=== PATIENT | male | born 1960 | race Caucasian/White ===

== ENCOUNTER 2016-12-21 15:31 | Inpatient (IN) | payer MEDICARE, OTHER ==
[~2016-12-21] VITALS: Ht 162.6 cm; Wt 63.3 kg
[~2016-12-21 15:31] MED LIST: DSS100 PO; METF500T4 PO; MULT-1238 PO; OMEP20 PO
[2016-12-21 15:51] LABS: GLUCOSE,POINT OF CARE 52 MG/DL (70-110)
[2016-12-21 16:16] LABS: ANION GAP 28 mmol/L (8-16); CALCIUM, TOTAL 7.2 mg/dL (8.8-10.5); CARBON DIOXIDE 14 mmol/L (22-29); CHLORIDE 95 mmol/L (98-107); CREATININE 2.43 mg/dL (0.60-1.30); GLOMERULAR FILTR. RATE CALC 28 mL/min (>60); HEMATOCRIT 35.8 % (41-53); MEAN CORPUSCULAR HEMOGLOBIN 31.6 pg (26.0-34.0); MEAN CORPUSCULAR HGB CONC 33.6 G/dL (31.0-37.0); MEAN CORPUSCULAR VOLUME 94 fL (80-100); POTASSIUM 3.6 mmol/L (3.5-5.1); RED BLOOD CELL COUNT(AUTO) 3.81 MIL/uL (4.50-5.90); RED CELL DISTRIBUTION WIDTH 15.3 % (11.5-14.5); SODIUM SERUM 137 mmol/L (136-145); UREA NITROGEN, BLOOD 21 mg/dL (7-18); WHITE BLOOD COUNT (AUTO) 15.3 K/uL (4.5-11.0)
[2016-12-21 16:20] LABS: ALANINE AMINOTRANSFERASE 188 U/L (12-78); ALBUMIN 2.6 g/dL (3.4-5.0); ASPARTATE AMINOTRANSFERASE 399 U/L (15-37); BILIRUBIN,TOTAL 1.5 mg/dL (0.1-1.0); TOTAL PROTEIN, SERUM 6.8 g/dL (6.4-8.2)
[2016-12-21] MEDS ORDERED: NAPROXEN 250 MG TABLET PO ONE (16:45)
[2016-12-21 17:24] LABS: PLATELET COUNT (AUTO) 41 K/uL (150-450)
[2016-12-21 18:12] LABS: GLUCOSE,POINT OF CARE 99 MG/DL (70-110)
[2016-12-21] MEDS ORDERED: SODIUM CHLORIDE 0.9% 2,000 ML IV ONE (18:13)
[2016-12-21] MEDS ORDERED: DEXTROSE 50%-WATER 25 GM/50 ML SYRINGE IVP ONE (18:30)
[2016-12-21] MEDS ORDERED: SODIUM CHLORIDE 0.9% 1,000 ML IV ONE ×2 (18:30)
[2016-12-21 18:37] LABS: BAND NEUTROPHILS % (MANUAL) 43 % (1-5); LYMPHOCYTES % (MANUAL) 4 % (22-44); METAMYELOCYTES % 8 % (0-0); TOTAL CELLS COUNTED 100
[2016-12-21 18:38] LABS: WBC MORPHOLOGY TOXIC VACUOLATION
[2016-12-21 19:00] LABS: ABG BASE EXCESS -11.5 mmol/L (-2.0-3.0); ABG HCO3 16.6 mmol/L (22.0-26.0); ABG PCO2 25 mmHg (35-45); ABG PH 7.367 (7.35-7.450); TEMPERATURE, FAHRENHEIT, BG 98.6 FAHREN (96.0-98.6)
[2016-12-21 19:01] LABS: ALLEN TEST, BLOOD GAS Positive
[2016-12-21 19:21] LABS: APPEARANCE,URINE CLOUDY (CLEAR)
[2016-12-21 19:22] LABS: PROTEIN,URINE SEE CONFIRM (NEGATIVE)
[2016-12-21 19:23] LABS: GLUCOSE, URINE (UA) NEGATIVE (NEGATIVE)
[2016-12-21 19:25] LABS: OCCULT BLOOD,URINE LARGE (NEGATIVE)
[2016-12-21 19:26] LABS: ADD UA MICROSCOPIC YES; KETONES,URINE TRACE mg/dL (NEGATIVE); LEUKOCYTE ESTERASE ,URINE TRACE (NEGATIVE)
[2016-12-21 19:29] LABS: INR 1.2 (0.9-1.1); PROTHROMBIN TIME 12.7 SEC (9.4-11.6)
[2016-12-21 19:29] LABS: SULFOSALICYLIC ACID,URINE 1+ (Negative)
[2016-12-21 19:30] LABS: SQUAMOUS EPITHELIAL CELL,UR Few /LPF (None Seen)
[2016-12-21] MEDS ORDERED: ASPIRIN 325 MG TABLET PO ONE (19:30)
[2016-12-21 19:33] LABS: LACTIC ACID 9.4 mmol/L (0.4-2.0)
[2016-12-21 19:40] LABS: CREATINE KINASE, TOTAL 9653 U/L (39-308)
[2016-12-21] MEDS ORDERED: PIPERACILLIN/TAZO 3.375 GM/D5W 50 ML IV ONE (19:45)
[2016-12-21] MEDS ORDERED: CALCIUM GLUCONATE 2,000 MG in DEXTROSE 5%-WATER 50 ML IV ONE (19:45)
[2016-12-21] MEDS ORDERED: 0.9% SODIUM CHLORIDE 10 ML SYRINGE IVP PRN (20:00)
[2016-12-21] MEDS ORDERED: ONDANSETRON HCL 4 MG/2 ML VIAL IVP PRN (20:00)
[2016-12-21] MEDS ORDERED: ACETAMINOPHEN 325 MG TABLET PO PRN (20:00)
[2016-12-21 20:02] LABS: SALICYLATE 3.3 mg/dL (2.8-20.0)
[2016-12-21 20:35] LABS: ACETAMINOPHEN < 2 mcg/mL (10-30)
[2016-12-21 20:42] LABS: REFLEX LACTIC ACID? YES YES
[2016-12-21 21:46] VITALS: BP 107/79
[2016-12-21] MEDS ORDERED: INFLUENZA VIRUS VACCINE QVS 2016-17 (3YR+)/PF 60 MCG/0.5 ML SYRINGE IM ONE (23:45)
[2016-12-21] MEDS ORDERED: -PHARMACY VACCINE NOTE- MISC ONE ×2 (23:45)
[2016-12-21 23:51] VITALS: BP 100/63
[2016-12-22] VITALS (7 sets, daily range): BP systolic 90–111; BP diastolic 58–69
[2016-12-22 00:11] LABS: ALBUMIN 2.3 g/dL (3.4-5.0); BILIRUBIN,TOTAL 1.4 mg/dL (0.1-1.0); CALCIUM, TOTAL 6.5 mg/dL (8.8-10.5); CREATININE 2.12 mg/dL (0.60-1.30); POTASSIUM 3.7 mmol/L (3.5-5.1); TOTAL PROTEIN, SERUM 6.1 g/dL (6.4-8.2)
[2016-12-22] MEDS ORDERED: SODIUM CHLORIDE 0.9% 1,000 ML IV SCH ×2 (00:45→10:45)
[2016-12-22 02:59] LABS: CREATINE KINASE MB 46.2 ng/mL (0-5)
[2016-12-22] MEDS ORDERED: DEXTROSE 50%-WATER 25 GM/50 ML SYRINGE IVP PRN (04:45)
[2016-12-22] MEDS ORDERED: ChlordiazePOXIDE HCL 25 MG CAPSULE PO PRN (04:45)
[2016-12-22] MEDS ORDERED: ACETAMINOPHEN 325 MG TABLET PO PRN (05:00)
[2016-12-22] MEDS ORDERED: MAGNESIUM HYDROXIDE SUSPENSION 30 ML UDCUP PO PRN (05:00)
[2016-12-22] MEDS ORDERED: 0.9% SODIUM CHLORIDE 10 ML SYRINGE IVP PRN (05:00)
[2016-12-22] MEDS ORDERED: ONDANSETRON HCL 4 MG/2 ML VIAL IVP PRN (05:00)
[2016-12-22] MEDS ORDERED: OxyCODONE HCL/ACETAMINOPHEN 5-325 MG TABLET PO PRN (05:00)
[2016-12-22] MEDS ORDERED: NICOTINE 21 MG/24 HOUR PATCH TD ONE (06:30)
[2016-12-22] MEDS: CefTRIAXone 1 GM/DEXTROSE 50 ML IV SCH (06:36)
[2016-12-22] MEDS: PANTOPRAZOLE SODIUM 40 MG/VIAL IVP SCH (08:59)
[2016-12-22] MEDS: MULTIVITAMINS, THERAPEUTIC TABLET PO SCH (08:59)
[2016-12-22] MEDS: THIAMINE HCL 100 MG TABLET PO SCH (08:59)
[2016-12-22] MEDS: METOPROLOL SUCCINATE 25 MG ER TABLET PO SCH (08:59)
[2016-12-22] MEDS: FOLIC ACID 1 MG TABLET PO SCH (08:59)
[2016-12-22] MEDS: DOCUSATE SODIUM 100 MG CAPSULE PO SCH ×2 (09:00→20:39)
[2016-12-22] MEDS: INSULIN ASPART 100 UNITS/ML SQ PRN ×2 (11:45→18:18)
[2016-12-22] MEDS: SODIUM BICARBONATE 150 MEQ in DEXTROSE 5%-WATER 1,000 ML IV SCH (18:11)
[2016-12-22] MEDS ORDERED: MAGNESIUM SULFATE 2 GM in DEXTROSE 5%-WATER 50 ML IV ONE (18:30)
[2016-12-22 22:51] LABS: GLUCOSE,POINT OF CARE 147 MG/DL (70-110)
[2016-12-22 22:51] LABS: GLUCOSE,POINT OF CARE 122 MG/DL (70-110)
[2016-12-23 04:17] VITALS: BP 93/56
[2016-12-23 04:47] VITALS: BP 93/56
[2016-12-23] MEDS: CefTRIAXone 1 GM/DEXTROSE 50 ML IV SCH (05:59)
[2016-12-23] MEDS: SODIUM BICARBONATE 150 MEQ in DEXTROSE 5%-WATER 1,000 ML IV SCH (05:59)
[2016-12-23] MEDS ORDERED: ChlordiazePOXIDE HCL 25 MG CAPSULE PO PRN (07:00)
[2016-12-23 07:18] VITALS: BP 113/66
[2016-12-23 07:36] LABS: HEMATOCRIT 29.4 % (41-53); HEMOGLOBIN 10.2 g/dL (13.5-17.5); MEAN CORPUSCULAR HEMOGLOBIN 32.3 pg (26.0-34.0); MEAN CORPUSCULAR HGB CONC 34.7 G/dL (31.0-37.0); MEAN CORPUSCULAR VOLUME 93 fL (80-100); RED BLOOD CELL COUNT(AUTO) 3.16 MIL/uL (4.50-5.90); RED CELL DISTRIBUTION WIDTH 15.3 % (11.5-14.5); WHITE BLOOD COUNT (AUTO) 10.2 K/uL (4.5-11.0)
[2016-12-23 08:24] LABS: PLATELET COUNT (AUTO) 14 K/uL (150-450)
[2016-12-23] MEDS: PANTOPRAZOLE SODIUM 40 MG/VIAL IVP SCH (08:26)
[2016-12-23] MEDS: DOCUSATE SODIUM 100 MG CAPSULE PO SCH ×2 (08:26→20:24)
[2016-12-23] MEDS: MULTIVITAMINS, THERAPEUTIC TABLET PO SCH (08:26)
[2016-12-23] MEDS: ChlordiazePOXIDE HCL 25 MG CAPSULE PO SCH ×4 (08:26→20:27)
[2016-12-23] MEDS: THIAMINE HCL 100 MG TABLET PO SCH (08:26)
[2016-12-23] MEDS: METOPROLOL SUCCINATE 25 MG ER TABLET PO SCH (08:26)
[2016-12-23] MEDS: FOLIC ACID 1 MG TABLET PO SCH (08:26)
[2016-12-23 08:27] LABS: BAND NEUTROPHILS % (MANUAL) 16 % (1-5); EOSINOPHILS % (MANUAL) 1 % (1-6); LYMPHOCYTES % (MANUAL) 15 % (22-44); TOTAL CELLS COUNTED 100
[2016-12-23 08:29] LABS: BILIRUBIN,TOTAL 1.6 mg/dL (0.1-1.0); CALCIUM, TOTAL 6.9 mg/dL (8.8-10.5); CREATININE 1.39 mg/dL (0.60-1.30); MAGNESIUM 1.8 mg/dL (1.80-2.40); TOTAL PROTEIN, SERUM 5.7 g/dL (6.4-8.2)
[2016-12-23 08:33] LABS: POTASSIUM 2.7 mmol/L (3.5-5.1)
[2016-12-23] MEDS ORDERED: POTASSIUM CHLORIDE 20 MEQ ER TABLET PO ONE (08:45)
[2016-12-23 08:47] LABS: APPEARANCE,URINE CLOUDY (CLEAR); GLUCOSE, URINE (UA) NEGATIVE (NEGATIVE); KETONES,URINE NEGATIVE (NEGATIVE); LEUKOCYTE ESTERASE ,URINE LARGE (NEGATIVE); OCCULT BLOOD,URINE LARGE (NEGATIVE); PROTEIN,URINE TRACE (NEGATIVE)
[2016-12-23 08:49] LABS: ADD UA MICROSCOPIC YES
[2016-12-23 08:53] LABS: SQUAMOUS EPITHELIAL CELL,UR Few /LPF (None Seen)
[2016-12-23] MEDS ORDERED: POTASSIUM CHLORIDE IV ONE (09:00)
[2016-12-23] MEDS ORDERED: SODIUM BICARBONATE IV ONE (09:00)
[2016-12-23] MEDS ORDERED: SODIUM CHLORIDE 0.45% IV ONE (09:00)
[2016-12-23 11:02] VITALS: BP 101/59
[2016-12-23] MEDS: INSULIN ASPART 100 UNITS/ML SQ PRN ×3 (11:32→20:47)
[2016-12-23] MEDS ORDERED: POTASSIUM CHLORIDE 10% 40 MEQ/30 ML LIQUID UDCUP PO ONE (12:45)
[2016-12-23] MEDS: NICOTINE 21 MG/24 HOUR PATCH TD SCH (12:55)
[2016-12-23 14:24] LABS: FIBRINOGEN 375 mg/dL (200-400)
[2016-12-23 14:33] LABS: VITAMIN B12 LEVEL 927 pg/mL (211-911)
[2016-12-23] MEDS: DENTURE ADHESIVE 68 GM CREAM DT PRN (15:22)
[2016-12-23 15:43] VITALS: BP 127/72
[2016-12-23 20:10] VITALS: BP 102/70
[2016-12-23] MEDS: OxyCODONE HCL/ACETAMINOPHEN 5-325 MG TABLET PO PRN (20:27)
[2016-12-24] VITALS: BP 110/67
[2016-12-24 04:07] LABS: GLUCOSE,POINT OF CARE 135 MG/DL (70-110)
[2016-12-24] MEDS ORDERED: SODIUM CHLORIDE 0.9% 100 ML ONE (05:21)
[2016-12-24] MEDS: CefTRIAXone 1 GM/DEXTROSE 50 ML IV SCH (05:23)
[2016-12-24 05:24] VITALS: BP 123/82
[2016-12-24] MEDS: INSULIN ASPART 100 UNITS/ML SQ PRN ×2 (06:01→22:13)
[2016-12-24 07:21] VITALS: BP 111/80
[2016-12-24] MEDS: PANTOPRAZOLE SODIUM 40 MG/VIAL IVP SCH (08:09)
[2016-12-24] MEDS: DOCUSATE SODIUM 100 MG CAPSULE PO SCH ×2 (08:09→22:04)
[2016-12-24] MEDS: THIAMINE HCL 100 MG TABLET PO SCH (08:10)
[2016-12-24] MEDS: ChlordiazePOXIDE HCL 25 MG CAPSULE PO SCH ×4 (08:10→22:04)
[2016-12-24] MEDS: MULTIVITAMINS, THERAPEUTIC TABLET PO SCH (08:10)
[2016-12-24] MEDS: FOLIC ACID 1 MG TABLET PO SCH (08:10)
[2016-12-24] MEDS: BuPROPion HCL 100 MG SR TABLET PO SCH (08:10)
[2016-12-24] MEDS: NICOTINE 21 MG/24 HOUR PATCH TD SCH (08:11)
[2016-12-24 08:52] LABS: GLUCOSE,POINT OF CARE 91 MG/DL (70-110)
[2016-12-24 10:12] LABS: HEMATOCRIT 31.3 % (41-53); HEMOGLOBIN 10.8 g/dL (13.5-17.5); MEAN CORPUSCULAR HEMOGLOBIN 31.8 pg (26.0-34.0); MEAN CORPUSCULAR HGB CONC 34.4 G/dL (31.0-37.0); MEAN CORPUSCULAR VOLUME 92 fL (80-100); RED BLOOD CELL COUNT(AUTO) 3.39 MIL/uL (4.50-5.90); RED CELL DISTRIBUTION WIDTH 15.3 % (11.5-14.5); WHITE BLOOD COUNT (AUTO) 6.6 K/uL (4.5-11.0)
[2016-12-24 10:23] LABS: PLATELET COUNT (AUTO) 15 K/uL (150-450)
[2016-12-24 10:27] LABS: ANION GAP 7 mmol/L (8-16); CALCIUM, TOTAL 7.5 mg/dL (8.8-10.5); CARBON DIOXIDE 27 mmol/L (22-29); CHLORIDE 106 mmol/L (98-107); CREATINE KINASE MB 3.4 ng/mL (0-5); CREATININE 1.04 mg/dL (0.60-1.30); GLOMERULAR FILTR. RATE CALC > 60 mL/min (>60); POTASSIUM 3.5 mmol/L (3.5-5.1); SODIUM SERUM 140 mmol/L (136-145); UREA NITROGEN, BLOOD 34 mg/dL (7-18)
[2016-12-24 10:31] LABS: CREATINE KINASE, TOTAL 1278 U/L (39-308)
[2016-12-24 10:58] LABS: APPEARANCE,URINE CLEAR (CLEAR); GLUCOSE, URINE (UA) NEGATIVE (NEGATIVE); KETONES,URINE NEGATIVE (NEGATIVE); LEUKOCYTE ESTERASE ,URINE MODERATE (NEGATIVE); OCCULT BLOOD,URINE MODERATE (NEGATIVE); PROTEIN,URINE NEGATIVE (NEGATIVE)
[2016-12-24 11:00] LABS: BAND NEUTROPHILS % (MANUAL) 11 % (1-5); LYMPHOCYTES % (MANUAL) 14 % (22-44); TOTAL CELLS COUNTED 100
[2016-12-24] MEDS ORDERED: POTASSIUM CHLORIDE 10% 40 MEQ/30 ML LIQUID UDCUP PO ONE (11:00)
[2016-12-24 11:01] LABS: ADD UA MICROSCOPIC YES
[2016-12-24 11:02] LABS: RBC MORPHOLOGY COMMENT ABNORMAL R
[2016-12-24 11:04] LABS: SQUAMOUS EPITHELIAL CELL,UR Few /LPF (None Seen)
[2016-12-24 11:31] VITALS: BP 148/91
[2016-12-24] MEDS: SODIUM BICARBONATE 650 MG TABLET PO SCH ×2 (12:01→22:05)
[2016-12-24] MEDS: METOPROLOL SUCCINATE 25 MG ER TABLET PO SCH (12:01)
[2016-12-24 15:45] VITALS: BP 115/74
[2016-12-24] MEDS: CefoTEtan DISOD 1 GM/DEXTROSE 50 ML IV SCH (17:16)
[2016-12-24] MEDS: MAGNESIUM OXIDE 400 MG TABLET PO SCH ×2 (17:16→22:04)
[2016-12-24] MEDS ORDERED: SODIUM CHLORIDE 0.9% 250 ML IV ONE (18:09)
[2016-12-24 19:07] LABS: GLUCOSE,POINT OF CARE 118 MG/DL (70-110)
[2016-12-24 20:03] VITALS: BP 125/81
[2016-12-25 00:34] VITALS: BP 106/68
[2016-12-25] MEDS: CefoTEtan DISOD 1 GM/DEXTROSE 50 ML IV SCH ×3 (00:52→16:47)
[2016-12-25 04:06] LABS: HEPATITIS Bs ANTIGEN SCREEN P Negative (Negative); HEPATITIS C AB SCREEN >11.0 s/co ratio (0.0-0.9)
[2016-12-25 06:26] VITALS: BP 113/69
[2016-12-25] MEDS: INSULIN ASPART 100 UNITS/ML SQ PRN (06:48)
[2016-12-25] MEDS ORDERED: ChlordiazePOXIDE HCL 10 MG CAPSULE PO PRN (07:00)
[2016-12-25 07:56] LABS: BASOPHILS % (AUTO) 0.5 % (0.0-2.0); EOSINOPHILS % (AUTO) 2.8 % (1.0-6.0); HEMATOCRIT 31.4 % (41-53); HEMOGLOBIN 10.7 g/dL (13.5-17.5); LYMPHOCYTES # (AUTO) 1.1 K/uL (1.0-4.8); LYMPHOCYTES % (AUTO) 20.2 % (22.0-44.0); MEAN CORPUSCULAR HEMOGLOBIN 31.8 pg (26.0-34.0); MEAN CORPUSCULAR HGB CONC 34.1 G/dL (31.0-37.0); MEAN CORPUSCULAR VOLUME 93 fL (80-100); MONOCYTES # (AUTO) 0.3 K/uL (0.1-1.0); MONOCYTES % (AUTO) 6.3 % (2.0-9.0); NEUTROPHILS # (AUTO) 3.9 K/uL (1.8-7.7); NEUTROPHILS % (AUTO) 70.2 % (40.0-70.0); PLATELET COUNT (AUTO) 21 K/uL (150-450); RED BLOOD CELL COUNT(AUTO) 3.37 MIL/uL (4.50-5.90); RED CELL DISTRIBUTION WIDTH 15.2 % (11.5-14.5); WHITE BLOOD COUNT (AUTO) 5.6 K/uL (4.5-11.0)
[2016-12-25 08:00] VITALS: BP 106/57
[2016-12-25 08:26] LABS: ANION GAP 7 mmol/L (8-16); CALCIUM, TOTAL 7.8 mg/dL (8.8-10.5); CARBON DIOXIDE 26 mmol/L (22-29); CHLORIDE 107 mmol/L (98-107); CREATININE 1.05 mg/dL (0.60-1.30); GLOMERULAR FILTR. RATE CALC > 60 mL/min (>60); POTASSIUM 3.8 mmol/L (3.5-5.1); SODIUM SERUM 140 mmol/L (136-145); UREA NITROGEN, BLOOD 24 mg/dL (7-18)
[2016-12-25] MEDS: BuPROPion HCL 100 MG SR TABLET PO SCH (08:55)
[2016-12-25] MEDS: NICOTINE 21 MG/24 HOUR PATCH TD SCH (08:55)
[2016-12-25] MEDS: PANTOPRAZOLE SODIUM 40 MG/VIAL IVP SCH (08:55)
[2016-12-25] MEDS: FOLIC ACID 1 MG TABLET PO SCH (08:56)
[2016-12-25] MEDS: THIAMINE HCL 100 MG TABLET PO SCH (08:56)
[2016-12-25] MEDS: MULTIVITAMINS, THERAPEUTIC TABLET PO SCH (08:56)
[2016-12-25] MEDS: METOPROLOL SUCCINATE 25 MG ER TABLET PO SCH (08:56)
[2016-12-25] MEDS: SODIUM BICARBONATE 650 MG TABLET PO SCH ×2 (08:56→21:42)
[2016-12-25] MEDS: MAGNESIUM OXIDE 400 MG TABLET PO SCH ×3 (08:56→21:42)
[2016-12-25] MEDS: ChlordiazePOXIDE HCL 25 MG CAPSULE PO SCH (08:59)
[2016-12-25] MEDS: DOCUSATE SODIUM 100 MG CAPSULE PO SCH ×2 (09:00→21:00)
[2016-12-25] MEDS: ChlordiazePOXIDE HCL 10 MG CAPSULE PO SCH ×4 (09:10→21:00)
[2016-12-25] MEDS ORDERED: MAGNESIUM SULFATE 1 GM in DEXTROSE 5%-WATER 50 ML IV ONE (10:30)
[2016-12-25 11:16] LABS: RBC MORPHOLOGY COMMENT NORMAL RBC MORPH
[2016-12-25 12:00] VITALS: BP 111/62
[2016-12-25 16:23] VITALS: BP 131/83
[2016-12-25] MEDS ORDERED: SODIUM CHLORIDE 0.9% 250 ML IV ONE (16:40)
[2016-12-25] MEDS ORDERED: MAGNESIUM SULFATE 4 GM/WATER 100 ML IV PRN (17:45)
[2016-12-25] MEDS ORDERED: MAGNESIUM OXIDE 400 MG TABLET PO PRN (17:45)
[2016-12-25] MEDS ORDERED: MAGNESIUM SULFATE 2 GM in DEXTROSE 5%-WATER 50 ML IV PRN (17:45)
[2016-12-25 20:08] VITALS: BP 125/80
[2016-12-25 23:42] LABS: GLUCOSE,POINT OF CARE 132 MG/DL (70-110)
[2016-12-25 23:42] LABS: GLUCOSE,POINT OF CARE 136 MG/DL (70-110)
[2016-12-26] VITALS (7 sets, daily range): BP systolic 120–140; BP diastolic 73–84
[2016-12-26] MEDS ORDERED: SODIUM CHLORIDE 0.9% 100 ML ONE (04:34)
[2016-12-26] MEDS: CefoTEtan DISOD 1 GM/DEXTROSE 50 ML IV SCH ×2 (04:53→16:14)
[2016-12-26] MEDS: INSULIN ASPART 100 UNITS/ML SQ PRN (06:45)
[2016-12-26] MEDS ORDERED: ChlordiazePOXIDE HCL 10 MG CAPSULE PO PRN (07:00)
[2016-12-26] MEDS: THIAMINE HCL 100 MG TABLET PO SCH (08:21)
[2016-12-26] MEDS: MAGNESIUM OXIDE 400 MG TABLET PO SCH ×2 (08:21→16:14)
[2016-12-26] MEDS: PANTOPRAZOLE SODIUM 40 MG/VIAL IVP SCH (08:21)
[2016-12-26] MEDS: BuPROPion HCL 100 MG SR TABLET PO SCH (08:21)
[2016-12-26] MEDS: METOPROLOL SUCCINATE 25 MG ER TABLET PO SCH (08:21)
[2016-12-26] MEDS: FOLIC ACID 1 MG TABLET PO SCH (08:21)
[2016-12-26] MEDS: DOCUSATE SODIUM 100 MG CAPSULE PO SCH (08:21)
[2016-12-26] MEDS: MULTIVITAMINS, THERAPEUTIC TABLET PO SCH (08:21)
[2016-12-26] MEDS: NICOTINE 21 MG/24 HOUR PATCH TD SCH (08:22)
[2016-12-26] MEDS ORDERED: DENTURE ADHESIVE 68 GM CREAM DT PRN (10:15)
[2016-12-26 10:31] LABS: GLUCOSE,POINT OF CARE 104 MG/DL (70-110)
[2016-12-26 10:37] LABS: BASOPHILS % (AUTO) 0.8 % (0.0-2.0); EOSINOPHILS % (AUTO) 1.7 % (1.0-6.0); HEMATOCRIT 34.1 % (41-53); HEMOGLOBIN 11.5 g/dL (13.5-17.5); LYMPHOCYTES # (AUTO) 1.4 K/uL (1.0-4.8); LYMPHOCYTES % (AUTO) 16.6 % (22.0-44.0); MEAN CORPUSCULAR HEMOGLOBIN 31.4 pg (26.0-34.0); MEAN CORPUSCULAR HGB CONC 33.8 G/dL (31.0-37.0); MEAN CORPUSCULAR VOLUME 93 fL (80-100); MONOCYTES # (AUTO) 0.6 K/uL (0.1-1.0); MONOCYTES % (AUTO) 7.6 % (2.0-9.0); NEUTROPHILS # (AUTO) 6.2 K/uL (1.8-7.7); NEUTROPHILS % (AUTO) 73.3 % (40.0-70.0); PLATELET COUNT (AUTO) 34 K/uL (150-450); RED BLOOD CELL COUNT(AUTO) 3.67 MIL/uL (4.50-5.90); RED CELL DISTRIBUTION WIDTH 15.3 % (11.5-14.5); WHITE BLOOD COUNT (AUTO) 8.5 K/uL (4.5-11.0)
[2016-12-26 10:48] LABS: RBC MORPHOLOGY COMMENT NORMAL RBC MORPH
[2016-12-26] MEDS ORDERED: MAGNESIUM SULFATE 1 GM in DEXTROSE 5%-WATER 50 ML IV ONE (11:00)
[2016-12-26 11:59] LABS: GLUCOSE,POINT OF CARE 133 MG/DL (70-110)
[2016-12-26] MEDS: OxyCODONE HCL/ACETAMINOPHEN 5-325 MG TABLET PO PRN ×2 (12:06→16:45)
[2016-12-26] MEDS: DENTURE ADHESIVE 68 GM CREAM DT PRN (16:14)
[2016-12-26 17:37] LABS: GLUCOSE,POINT OF CARE 96 MG/DL (70-110)
[2016-12-26] MEDS ORDERED: [UNRECOGNIZED DRUG - CODE] IV (21:50)
[2016-12-26] MEDS ORDERED: BUPR100T6 PO (21:51)
[2016-12-26] MEDS ORDERED: FOLI1TAB15 PO (21:52)
[2016-12-26] MEDS ORDERED: MAGN400T6 PO (21:53)
[2016-12-26] MEDS ORDERED: MAGN400T25 PO (21:54)
[2016-12-26] MEDS ORDERED: METO-323 PO (21:54)
[2016-12-26] MEDS ORDERED: NICO21T TD (21:55)
[2016-12-26] MEDS ORDERED: THIA100 PO (21:56)
[2016-12-26 21:57] LABS: GLUCOSE,POINT OF CARE 107 MG/DL (70-110)
[2016-12-26 21:57] LABS: GLUCOSE,POINT OF CARE 127 MG/DL (70-110)
[2017-04-10] MEDS ORDERED: NITR.4 SL (14:11)
[2017-04-10] MEDS ORDERED: ARIP10TA14 PO (14:11)
[2017-04-10] MEDS ORDERED: PERCT10 PO (14:11)
[2017-04-15] MEDS ORDERED: BUPR-93 PO (09:36)
== END 2016-12-26 20:30 | DRG 871 ==
LOC: EMS 15:34 → 5S 20:00 → 6N 12-26 10:10
PROVIDERS: ADMIT Internal Medicine; ATTEND Internal Medicine
DX: A41.9 Sepsis, unspecified organism (principal); E43 Unspecified severe protein-calorie malnutrition; R65.21 Severe sepsis with septic shock; M62.82 Rhabdomyolysis; N17.9 Acute kidney failure, unspecified; E87.2 Acidosis; N39.0 Urinary tract infection, site not specified; F10.239 Alcohol dependence with withdrawal, unspecified; D69.6 Thrombocytopenia, unspecified; F25.9 Schizoaffective disorder, unspecified; E86.9 Volume depletion, unspecified; E87.6 Hypokalemia; D64.9 Anemia, unspecified; B96.20 Unspecified Escherichia coli [E. coli] as the cause of diseases classified elsewhere; Z28.21 Immunization not carried out because of patient refusal; Z68.24 Body mass index [BMI] 24.0-24.9, adult; B19.20 Unspecified viral hepatitis C without hepatic coma; B96.89 Other specified bacterial agents as the cause of diseases classified elsewhere; F17.210 Nicotine dependence, cigarettes, uncomplicated; E83.51 Hypocalcemia; F31.9 Bipolar disorder, unspecified; I10 Essential (primary) hypertension; N40.0 Benign prostatic hyperplasia without lower urinary tract symptoms; K74.60 Unspecified cirrhosis of liver; Z91.83 Wandering in diseases classified elsewhere; Z98.890 Other specified postprocedural states
CPT/HCPCS: 76700; 80074; 82270; 82271; 82570; 82607; 82746; 82803; 82805; 82962; 83605; 83615; 83735; 83874; 84132; 84300; 85362; 85379; 85384; 87040; 87045; 87081; 87086; 87185; 87324; 87449; 93005; 93306; 96361; 96365; 96366; 96368; 97110; 97116; 97162; 97530; 99285; C9113; G0480; G0481; J0610; J0696; J2543; J3475; J3480; J3490; J7030; J7050; J7060

== ENCOUNTER 2017-03-24 03:11 | Emergency (ER) | payer OTHER ==
[~2017-03-24] VITALS: Ht 175.3 cm; Wt 72.7 kg
[~2017-03-24 03:11] MED LIST changes: +BUPR100T6 PO; +FOLI1TAB15 PO; +MAGN400T25 PO; +MAGN400T6 PO; +METO-323 PO; +NICO21T TD; +THIA100 PO; +[UNRECOGNIZED DRUG - CODE] IV
[2017-03-24] MEDS ORDERED: ASPIRIN 325 MG TABLET PO ONE (03:30)
[2017-03-24] MEDS ORDERED: ACETAMINOPHEN 500 MG TABLET PO ONE (03:30)
[2017-03-24] MEDS ORDERED: ASPIRIN 81 MG CHEWABLE TABLET PO ONE (03:30)
[2017-03-24 03:42] LABS: BASOPHILS % (AUTO) 0.2 % (0.0-2.0); EOSINOPHILS % (AUTO) 3.1 % (1.0-6.0); HEMATOCRIT 33.7 % (41-53); LYMPHOCYTES # (AUTO) 1.9 K/uL (1.0-4.8); LYMPHOCYTES % (AUTO) 38.2 % (22.0-44.0); MEAN CORPUSCULAR HEMOGLOBIN 30.9 pg (26.0-34.0); MEAN CORPUSCULAR HGB CONC 32.6 G/dL (31.0-37.0); MEAN CORPUSCULAR VOLUME 95 fL (80-100); MONOCYTES # (AUTO) 0.5 K/uL (0.1-1.0); MONOCYTES % (AUTO) 10.5 % (2.0-9.0); NEUTROPHILS # (AUTO) 2.4 K/uL (1.8-7.7); PLATELET COUNT (AUTO) 179 K/uL (150-450); RED BLOOD CELL COUNT(AUTO) 3.57 MIL/uL (4.50-5.90); RED CELL DISTRIBUTION WIDTH 14.5 % (11.5-14.5)
[2017-03-24 03:50] LABS: ANION GAP 8 mmol/L (8-16); CALCIUM, TOTAL 8.7 mg/dL (8.8-10.5); CARBON DIOXIDE 26 mmol/L (22-29); CHLORIDE 104 mmol/L (98-107); CREATININE 0.91 mg/dL (0.60-1.30); GLOMERULAR FILTR. RATE CALC > 60 mL/min (>60); POTASSIUM 3.8 mmol/L (3.5-5.1); SODIUM SERUM 138 mmol/L (136-145); UREA NITROGEN, BLOOD 13 mg/dL (7-18)
[2017-03-24 04:09] LABS: B-TYPE NATRIURETIC PEPTIDE 16 pg/mL (0-100)
[2017-03-24 04:15] LABS: ALANINE AMINOTRANSFERASE 104 U/L (12-78); ASPARTATE AMINOTRANSFERASE 76 U/L (15-37); BILIRUBIN,TOTAL 0.8 mg/dL (0.1-1.0); CREATINE KINASE MB 0.6 ng/mL (0-5); CREATINE KINASE, TOTAL 118 U/L (39-308); TOTAL PROTEIN, SERUM 7.4 g/dL (6.4-8.2)
[2017-03-24 04:30] LABS: APPEARANCE,URINE CLOUDY (CLEAR); GLUCOSE, URINE (UA) NEGATIVE (NEGATIVE); KETONES,URINE NEGATIVE (NEGATIVE); LEUKOCYTE ESTERASE ,URINE LARGE (NEGATIVE); OCCULT BLOOD,URINE TRACE (NEGATIVE); PH,URINE 6.5 (5.0-8.0); PROTEIN,URINE NEGATIVE (NEGATIVE)
[2017-03-24] MEDS ORDERED: MORPHINE SULFATE 4 MG/ML SYRINGE IVP ONE (04:30)
[2017-03-24] MEDS ORDERED: ONDANSETRON HCL 4 MG/2 ML VIAL IVP ONE (04:30)
[2017-03-24 04:34] LABS: ADD UA MICROSCOPIC YES
[2017-03-24 05:09] LABS: WBC,URINE 26-50 /HPF (0-5)
[2017-03-24 05:10] LABS: SQUAMOUS EPITHELIAL CELL,UR Few /LPF (None Seen)
[2017-03-24] MEDS ORDERED: CIPROFLOXACIN HCL 250 MG TABLET PO ONE (05:45)
[2017-03-24] MEDS ORDERED: MAGNESIUM CITRATE 300 ML ORAL SOLUTION PO ONE (05:45)
[2017-03-24 08:47] VITALS: BP 125/71
[2017-04-10] MEDS ORDERED: PERCT10 PO (14:11)
[2017-04-10] MEDS ORDERED: ARIP10TA14 PO (14:11)
[2017-04-10] MEDS ORDERED: NITR.4 SL (14:11)
[2017-04-15] MEDS ORDERED: BUPR-93 PO (09:36)
== END 2017-03-24 09:47 | disposition home or self-care (01) ==
LOC: EMS 03:13
DX: R07.89 Other chest pain (principal); N39.0 Urinary tract infection, site not specified; K59.00 Constipation, unspecified; F25.9 Schizoaffective disorder, unspecified; F31.9 Bipolar disorder, unspecified; I10 Essential (primary) hypertension; F17.210 Nicotine dependence, cigarettes, uncomplicated
CPT/HCPCS: 36415; 71010; 80053; 80307; 81001; 82550; 82553; 83880; 84484; 85025; 87077; 87086; 93005; 96374; 96375; 99291; 99406; J2270; J2405

== ENCOUNTER 2017-05-07 10:34 | Emergency (ER) | payer OTHER, MEDICAID ==
[~2017-05-07] VITALS: Ht 175.3 cm; Wt 59.1 kg
[~2017-05-07 10:34] MED LIST changes: +ARIP10TA14 PO; +BUPR-93 PO; -BUPR100T6 PO; -FOLI1TAB15 PO; -MAGN400T25 PO; -MAGN400T6 PO; -NICO21T TD; -OMEP20 PO; -[UNRECOGNIZED DRUG - CODE] IV
[2017-05-07 10:57] LABS: GLUCOSE,POINT OF CARE 102 MG/DL (70-110)
[2017-05-07 11:09] LABS: BASOPHILS % (AUTO) 0.8 % (0.0-2.0); EOSINOPHILS % (AUTO) 1.8 % (1.0-6.0); HEMATOCRIT 42.9 % (41-53); HEMOGLOBIN 15.1 g/dL (13.5-17.5); LYMPHOCYTES # (AUTO) 1.1 K/uL (1.0-4.8); LYMPHOCYTES % (AUTO) 26.6 % (22.0-44.0); MEAN CORPUSCULAR HEMOGLOBIN 33.5 pg (26.0-34.0); MEAN CORPUSCULAR HGB CONC 35.1 G/dL (31.0-37.0); MEAN CORPUSCULAR VOLUME 95 fL (80-100); MONOCYTES # (AUTO) 0.4 K/uL (0.1-1.0); MONOCYTES % (AUTO) 8.6 % (2.0-9.0); NEUTROPHILS # (AUTO) 2.6 K/uL (1.8-7.7); NEUTROPHILS % (AUTO) 62.2 % (40.0-70.0); PLATELET COUNT (AUTO) 115 K/uL (150-450); RED BLOOD CELL COUNT(AUTO) 4.51 MIL/uL (4.50-5.90); RED CELL DISTRIBUTION WIDTH 14.7 % (11.5-14.5); WHITE BLOOD COUNT (AUTO) 4.1 K/uL (4.5-11.0)
[2017-05-07 11:17] LABS: PROTHROMBIN TIME 10.8 SEC (9.4-11.6)
[2017-05-07 11:19] LABS: ANION GAP 13 mmol/L (8-16); CALCIUM, TOTAL 9.2 mg/dL (8.8-10.5); CARBON DIOXIDE 23 mmol/L (22-29); CHLORIDE 100 mmol/L (98-107); CREATININE 1.16 mg/dL (0.60-1.30); GLOMERULAR FILTR. RATE CALC > 60 mL/min (>60); POTASSIUM 3.5 mmol/L (3.5-5.1); SODIUM SERUM 136 mmol/L (136-145); UREA NITROGEN, BLOOD 36 mg/dL (7-18)
[2017-05-07 11:26] LABS: ALANINE AMINOTRANSFERASE 107 U/L (12-78); ALBUMIN 3.6 g/dL (3.4-5.0); ASPARTATE AMINOTRANSFERASE 77 U/L (15-37); BILIRUBIN,TOTAL 0.8 mg/dL (0.1-1.0); CREATINE KINASE, TOTAL 38 U/L (39-308); TOTAL PROTEIN, SERUM 8.4 g/dL (6.4-8.2)
[2017-05-07 11:32] LABS: B-TYPE NATRIURETIC PEPTIDE < 5 pg/mL (0-100)
[2017-05-07] MEDS ORDERED: OxyCODONE HCL/ACETAMINOPHEN 5-325 MG TABLET PO ONE (14:15)
[2017-05-07 14:25] VITALS: BP 106/72
== END 2017-05-07 14:25 | disposition home or self-care (01) ==
LOC: EMS 10:36
DX: M54.9 Dorsalgia, unspecified (principal); R53.1 Weakness; G89.29 Other chronic pain; F17.210 Nicotine dependence, cigarettes, uncomplicated; I10 Essential (primary) hypertension
CPT/HCPCS: 36415; 71010; 80053; 82550; 82962; 83880; 84484; 85025; 85610; 85730; 93005; 99285; G0480

== ENCOUNTER 2018-04-05 20:47 | Emergency (ER) | payer OTHER, MEDICAID ==
[~2018-04-05] VITALS: Ht 175.3 cm; Wt 65.9 kg
[~2018-04-05 20:47] MED LIST changes: -ARIP10TA14 PO; +ARIP10TA8 PO; -METF500T4 PO; +METF500T6 PO; -METO-323 PO; +METO25XL PO; -THIA100 PO; +THIA100T67 PO
[2018-04-05 21:08] LABS: GLUCOSE,POINT OF CARE 185 MG/DL (70-110)
[2018-04-05 22:03] LABS: BASOPHILS % (AUTO) 0.4 % (0.0-2.0); EOSINOPHILS % (AUTO) 0.1 % (1.0-6.0); HEMATOCRIT 36.8 % (41-53); HEMOGLOBIN 13.2 g/dL (13.5-17.5); LYMPHOCYTES # (AUTO) 1.3 K/uL (1.0-4.8); LYMPHOCYTES % (AUTO) 16.5 % (22.0-44.0); MEAN CORPUSCULAR HEMOGLOBIN 32.3 pg (26.0-34.0); MEAN CORPUSCULAR HGB CONC 35.8 G/dL (31.0-37.0); MEAN CORPUSCULAR VOLUME 90 fL (80-100); MONOCYTES # (AUTO) 0.6 K/uL (0.1-1.0); MONOCYTES % (AUTO) 7.4 % (2.0-9.0); NEUTROPHILS # (AUTO) 6.1 K/uL (1.8-7.7); NEUTROPHILS % (AUTO) 75.6 % (40.0-70.0); PLATELET COUNT (AUTO) 135 K/uL (150-450); RED BLOOD CELL COUNT(AUTO) 4.07 MIL/uL (4.50-5.90); RED CELL DISTRIBUTION WIDTH 14.3 % (11.5-14.5)
[2018-04-05 22:11] LABS: ANION GAP 8 mmol/L (8-16); CALCIUM, TOTAL 8.2 mg/dL (8.8-10.5); CARBON DIOXIDE 28 mmol/L (22-29); CHLORIDE 98 mmol/L (98-107); CREATININE 1.02 mg/dL (0.60-1.30); GLOMERULAR FILTR. RATE CALC > 60 mL/min (>60); GLUCOSE,RANDOM 160 mg/dL (70-110); POTASSIUM 3.1 mmol/L (3.5-5.1); SODIUM SERUM 134 mmol/L (136-145); UREA NITROGEN, BLOOD 15 mg/dL (7-18)
[2018-04-05 22:17] LABS: ALANINE AMINOTRANSFERASE 148 U/L (12-78); ALBUMIN 3.2 g/dL (3.4-5.0); ALKALINE PHOSPHATASE 99 U/L (46-116); ASPARTATE AMINOTRANSFERASE 92 U/L (15-37); BILIRUBIN,TOTAL 1.3 mg/dL (0.1-1.0); TOTAL PROTEIN, SERUM 8.8 g/dL (6.4-8.2)
[2018-04-06] MEDS ORDERED: HALOPERIDOL 5 MG TABLET PO ONE (00:30)
[2018-04-06] MEDS ORDERED: POTASSIUM CHLORIDE 20 MEQ ER TABLET PO ONE (00:30)
[2018-04-06 02:01] LABS: AMPHET/METH SCREEN,URINE NEGATIVE (NEGATIVE); BARBITURATE SCREEN, URINE NEGATIVE (NEGATIVE); BENZODIAZEPINES SCREEN,URINE NEGATIVE (NEGATIVE); CANNABINOID SCREEN,URINE NEGATIVE (NEGATIVE); COCAINE SCREEN,URINE NEGATIVE (NEGATIVE); METHADONE SCREEN, URINE NEGATIVE (NEGATIVE); OPIATE SCREEN,URINE NEGATIVE (NEGATIVE); PHENCYCLIDINE SCREEN,URINE NEGATIVE (NEGATIVE)
[2018-04-06 02:12] VITALS: BP 134/74
== END 2018-04-06 02:32 | disposition home or self-care (01) ==
LOC: EMS 20:51
DX: F20.9 Schizophrenia, unspecified (principal); F31.9 Bipolar disorder, unspecified; I10 Essential (primary) hypertension; F17.210 Nicotine dependence, cigarettes, uncomplicated
CPT/HCPCS: 36415; 80053; 80307; 82962; 85025; 99284; 99406; G0480

== ENCOUNTER 2018-04-29 19:50 | Emergency (ER) | payer MEDICARE, MEDICAID ==
[~2018-04-29] VITALS: Ht 175.3 cm; Wt 61.4 kg
[~2018-04-29 19:50] MED LIST changes: -ARIP10TA8 PO; +NITR2.5 PO
[2018-04-29 20:18] LABS: GLUCOSE,POINT OF CARE 138 MG/DL (70-110)
[2018-04-29 20:32] LABS: BASOPHILS % (AUTO) 0.5 % (0.0-2.0); EOSINOPHILS % (AUTO) 0.4 % (1.0-6.0); HEMATOCRIT 32.9 % (41-53); HEMOGLOBIN 11.4 g/dL (13.5-17.5); LYMPHOCYTES # (AUTO) 0.8 K/uL (1.0-4.8); MEAN CORPUSCULAR HEMOGLOBIN 32.3 pg (26.0-34.0); MEAN CORPUSCULAR HGB CONC 34.7 G/dL (31.0-37.0); MEAN CORPUSCULAR VOLUME 93 fL (80-100); MONOCYTES # (AUTO) 0.4 K/uL (0.1-1.0); MONOCYTES % (AUTO) 9.3 % (2.0-9.0); NEUTROPHILS # (AUTO) 2.6 K/uL (1.8-7.7); NEUTROPHILS % (AUTO) 68.8 % (40.0-70.0); PLATELET COUNT (AUTO) 124 K/uL (150-450); RED BLOOD CELL COUNT(AUTO) 3.53 MIL/uL (4.50-5.90); RED CELL DISTRIBUTION WIDTH 14.4 % (11.5-14.5)
[2018-04-29 20:41] LABS: ANION GAP 14 mmol/L (8-16); CALCIUM, TOTAL 8.5 mg/dL (8.8-10.5); CARBON DIOXIDE 24 mmol/L (22-29); CHLORIDE 102 mmol/L (98-107); CREATININE 0.94 mg/dL (0.60-1.30); GLOMERULAR FILTR. RATE CALC > 60 mL/min (>60); GLUCOSE,RANDOM 133 mg/dL (70-110); POTASSIUM 3.6 mmol/L (3.5-5.1); SODIUM SERUM 140 mmol/L (136-145); UREA NITROGEN, BLOOD 28 mg/dL (7-18)
[2018-04-29 20:47] LABS: ALANINE AMINOTRANSFERASE 139 U/L (12-78); ALBUMIN 3.2 g/dL (3.4-5.0); ALKALINE PHOSPHATASE 100 U/L (46-116); ASPARTATE AMINOTRANSFERASE 163 U/L (15-37); BILIRUBIN,TOTAL 1.3 mg/dL (0.1-1.0)
[2018-04-29 21:22] LABS: AMPHET/METH SCREEN,URINE POSITIVE (NEGATIVE); BARBITURATE SCREEN, URINE NEGATIVE (NEGATIVE); BENZODIAZEPINES SCREEN,URINE NEGATIVE (NEGATIVE); CANNABINOID SCREEN,URINE NEGATIVE (NEGATIVE); COCAINE SCREEN,URINE NEGATIVE (NEGATIVE); METHADONE SCREEN, URINE NEGATIVE (NEGATIVE); OPIATE SCREEN,URINE NEGATIVE (NEGATIVE)
[2018-04-29 21:23] LABS: PHENCYCLIDINE SCREEN,URINE NEGATIVE (NEGATIVE)
[2018-04-29] MEDS ORDERED: HALOPERIDOL LACTATE 5 MG/ML VIAL IM ONE (23:00)
[2018-04-30 02:58] VITALS: BP 121/76
== END 2018-04-30 03:18 | disposition home or self-care (01) ==
LOC: EMS 19:51
DX: F20.9 Schizophrenia, unspecified (principal); R07.9 Chest pain, unspecified; F31.9 Bipolar disorder, unspecified; I10 Essential (primary) hypertension; F17.210 Nicotine dependence, cigarettes, uncomplicated; F19.90 Other psychoactive substance use, unspecified, uncomplicated
CPT/HCPCS: 36415; 71045; 80053; 80307; 82962; 84484; 85025; 93005; 96372; 99285; G0480; J1630

== ENCOUNTER 2018-11-07 10:14 | Inpatient (IN) | payer MEDICARE, MEDICAID ==
[~2018-11-07] VITALS: Ht 172.7 cm; Wt 62.6 kg
[~2018-11-07 10:14] MED LIST changes: +ARIP15TA2 PO; -BUPR-93 PO; +DIVA-78 PO; +FERR325T22 PO; +FOLI1TAB15 PO; -METF500T6 PO; -MULT-1238 PO; +NICO-704 TD; -NITR2.5 PO; +OMEP20 PO; -THIA100T67 PO
[2018-11-07 12:31] VITALS: BP 136/72
[2018-11-07 13:50] VITALS: BP 128/75
[2018-11-07 14:43] VITALS: BP 128/75
[2018-11-07 14:57] VITALS: BP 128/75
[2018-11-07] MEDS ORDERED: PNEUMOCOCCAL VACCINE POLYVALENT 0.5 ML VIAL [PPSV23] IM ONE (15:45)
[2018-11-07] MEDS: NICOTINE 21 MG/24 HOUR PATCH TD SCH (16:55)
[2018-11-07] MEDS: DIVALPROEX SODIUM 500 MG DR TABLET PO SCH (20:45)
[2018-11-07] MEDS: ZOLPIDEM TARTRATE 10 MG TABLET PO PRN (22:04)
[2018-11-08 01:25] VITALS: BP 122/69
[2018-11-08 08:48] VITALS: BP 117/69
[2018-11-08] MEDS: ARIPiprazole 15 MG TABLET PO SCH (08:57)
[2018-11-08] MEDS: DIVALPROEX SODIUM 500 MG DR TABLET PO SCH ×2 (08:57→20:50)
[2018-11-08] MEDS: NICOTINE 21 MG/24 HOUR PATCH TD SCH (08:57)
[2018-11-08 08:59] LABS: AMPHET/METH SCREEN,URINE POSITIVE (NEGATIVE); BARBITURATE SCREEN, URINE NEGATIVE (NEGATIVE); BENZODIAZEPINES SCREEN,URINE NEGATIVE (NEGATIVE); CANNABINOID SCREEN,URINE NEGATIVE (NEGATIVE); COCAINE SCREEN,URINE NEGATIVE (NEGATIVE); METHADONE SCREEN, URINE NEGATIVE (NEGATIVE); OPIATE SCREEN,URINE NEGATIVE (NEGATIVE)
[2018-11-08 09:02] LABS: PHENCYCLIDINE SCREEN,URINE NEGATIVE (NEGATIVE)
[2018-11-08] MEDS ORDERED: IBUPROFEN 600 MG TABLET PO PRN (09:45)
[2018-11-08] MEDS ORDERED: MAGNESIUM HYDROXIDE SUSPENSION 30 ML UDCUP PO PRN (09:45)
[2018-11-08] MEDS ORDERED: CloNIDine HCL 0.1 MG TABLET PO PRN (09:45)
[2018-11-08] MEDS ORDERED: ACETAMINOPHEN 325 MG TABLET PO PRN (09:45)
[2018-11-08] MEDS ORDERED: BACITRACIN 28.4 GM OINTMENT TP PRN (09:45)
[2018-11-08] MEDS ORDERED: ONDANSETRON HCL 4 MG TABLET PO PRN (09:45)
[2018-11-08] MEDS ORDERED: MAG HYDROX/AL HYDROX/SIMETH ES 30 ML SUSPENSION UDCUP PO PRN (09:45)
[2018-11-08] MEDS ORDERED: BENZOCAINE/MENTHOL LOZENGE MM PRN (09:45)
[2018-11-08] MEDS ORDERED: LOPERAMIDE HCL 2 MG CAPSULE PO PRN (09:45)
[2018-11-08] MEDS ORDERED: GLUCAGON,HUMAN RECOMBINANT 1 MG VIAL IM PRN (09:45)
[2018-11-08] MEDS ORDERED: ALBUTEROL SULFATE HFA 90 MCG/PUFF 8 GM INHALER IH PRN (09:45)
[2018-11-08] MEDS ORDERED: PETROLATUM,WHITE 71 GM JELLY TP PRN (09:45)
[2018-11-08 09:58] LABS: APPEARANCE,URINE CLOUDY (CLEAR); BILIRUBIN,URINE NEGATIVE (NEGATIVE); GLUCOSE, URINE (UA) NEGATIVE (NEGATIVE); KETONES,URINE NEGATIVE (NEGATIVE); LEUKOCYTE ESTERASE ,URINE LARGE (NEGATIVE); NITRATE,URINE NEGATIVE (NEGATIVE); OCCULT BLOOD,URINE NEGATIVE (NEGATIVE); PH,URINE 6.5 (5.0-8.0); PROTEIN,URINE NEGATIVE (NEGATIVE); UROBILINOGEN,URINE 0.2 mg/dL (<=1.0)
[2018-11-08] MEDS: DOCUSATE SODIUM 100 MG CAPSULE PO SCH (10:06)
[2018-11-08] MEDS: TAMSULOSIN HCL 0.4 MG CAPSULE PO SCH (10:06)
[2018-11-08] MEDS: OMEPRAZOLE 20 MG CAPSULE PO SCH (10:06)
[2018-11-08 10:29] LABS: BACTERIA,URINE Many /HPF (None Seen); CALCIUM OXALATE CRYSTALS,UR Moderate /LPF (None Seen); RBC,URINE 0-2 /HPF (0-2); SQUAMOUS EPITHELIAL CELL,UR Moderate /LPF (None Seen)
[2018-11-08] MEDS ORDERED: CIPROFLOXACIN HCL 500 MG TABLET PO SCH (11:00)
[2018-11-08 11:24] LABS: GLUCOMETER DEV NAME(LOC) BV2S.; GLUCOSE,POINT OF CARE 72 MG/DL (70-110)
[2018-11-08] MEDS: SULFAMETHOX/TRIMETH DS 800-160 MG/TABLET PO SCH (16:19)
[2018-11-08 16:23] VITALS: BP 104/68
[2018-11-08 17:04] LABS: GLUCOMETER DEV NAME(LOC) BV2S.; GLUCOSE,POINT OF CARE 140 MG/DL (70-110)
[2018-11-08 21:19] LABS: GLUCOMETER DEV NAME(LOC) BV2S.; GLUCOSE,POINT OF CARE 136 MG/DL (70-110)
[2018-11-08] MEDS: ZOLPIDEM TARTRATE 10 MG TABLET PO PRN (22:56)
[2018-11-09 03:22] VITALS: BP 112/70
[2018-11-09 06:00] LABS: GLUCOMETER DEV NAME(LOC) BV2S.; GLUCOSE,POINT OF CARE 109 MG/DL (70-110)
[2018-11-09 07:18] LABS: BASOPHILS % (AUTO) 0.6 % (0.0-2.0); EOSINOPHILS % (AUTO) 8.7 % (1.0-6.0); HEMATOCRIT 34.5 % (41-53); HEMOGLOBIN 11.8 g/dL (13.5-17.5); LYMPHOCYTES # (AUTO) 1.7 K/uL (1.0-4.8); MEAN CORPUSCULAR HEMOGLOBIN 32.7 pg (26.0-34.0); MEAN CORPUSCULAR HGB CONC 34.2 G/dL (31.0-37.0); MEAN CORPUSCULAR VOLUME 96 fL (80-100); MONOCYTES # (AUTO) 0.4 K/uL (0.1-1.0); MONOCYTES % (AUTO) 10.2 % (2.0-9.0); NEUTROPHILS # (AUTO) 1.7 K/uL (1.8-7.7); NEUTROPHILS % (AUTO) 39.5 % (40.0-70.0); PLATELET COUNT (AUTO) 133 K/uL (150-450); RED BLOOD CELL COUNT(AUTO) 3.61 MIL/uL (4.50-5.90); RED CELL DISTRIBUTION WIDTH 17.5 % (11.5-14.5)
[2018-11-09 07:35] LABS: HEMOGLOBIN A1C 5.9 % (4.5-6.2)
[2018-11-09 07:42] LABS: ALANINE AMINOTRANSFERASE 229 U/L (12-78); ALBUMIN 2.1 g/dL (3.4-5.0); ALKALINE PHOSPHATASE 144 U/L (46-116); ANION GAP 5 mmol/L (8-16); ASPARTATE AMINOTRANSFERASE 114 U/L (15-37); BILIRUBIN,TOTAL 0.4 mg/dL (0.1-1.0); CALCIUM, TOTAL 8.1 mg/dL (8.8-10.5); CARBON DIOXIDE 29 mmol/L (22-29); CHLORIDE 105 mmol/L (98-107); CHOL/HDL RATIO 4.8 (4.2-7.3); CHOLESTEROL 154 mg/dL (131-200); CREATININE 0.81 mg/dL (0.60-1.30); FREE T4 (FREE THYROXINE) 1.14 ng/dL (0.76-1.46); GLOMERULAR FILTR. RATE CALC > 60 mL/min (>60); GLUCOSE,RANDOM 101 mg/dL (70-110); HDL CHOLESTEROL 32 mg/dL (40-60); LDL CHOL (CALC.) 100 mg/dL (0-130); POTASSIUM 4.6 mmol/L (3.5-5.1); SODIUM SERUM 139 mmol/L (136-145); THYROID STIMULATING HORMONE 0.36 uIU/mL (0.36-3.74); TOTAL PROTEIN, SERUM 6.3 g/dL (6.4-8.2); TRIGLYCERIDES 109 mg/dL (15-150); UREA NITROGEN, BLOOD 24 mg/dL (7-18)
[2018-11-09 08:21] VITALS: BP 122/79
[2018-11-09] MEDS: TAMSULOSIN HCL 0.4 MG CAPSULE PO SCH (08:45)
[2018-11-09] MEDS: DOCUSATE SODIUM 100 MG CAPSULE PO SCH (08:45)
[2018-11-09] MEDS: OMEPRAZOLE 20 MG CAPSULE PO SCH (08:46)
[2018-11-09] MEDS: NICOTINE 21 MG/24 HOUR PATCH TD SCH (08:46)
[2018-11-09] MEDS: DIVALPROEX SODIUM 500 MG DR TABLET PO SCH ×2 (08:46→20:41)
[2018-11-09] MEDS: ARIPiprazole 15 MG TABLET PO SCH (08:46)
[2018-11-09] MEDS: SULFAMETHOX/TRIMETH DS 800-160 MG/TABLET PO SCH ×2 (08:46→16:28)
[2018-11-09] MEDS: INSULIN LISPRO 100 UNITS/ML SQ PRN (10:57)
[2018-11-09 11:04] LABS: GLUCOMETER DEV NAME(LOC) BV2S.; GLUCOSE,POINT OF CARE 160 MG/DL (70-110)
[2018-11-09 16:04] VITALS: BP 100/65
[2018-11-09 16:44] LABS: GLUCOMETER DEV NAME(LOC) BV2S.; GLUCOSE,POINT OF CARE 139 MG/DL (70-110)
[2018-11-09] MEDS: LORazepam 2 MG TABLET PO PRN (18:32)
[2018-11-09 21:04] LABS: GLUCOMETER DEV NAME(LOC) BV2S.; GLUCOSE,POINT OF CARE 129 MG/DL (70-110)
[2018-11-10 01:34] VITALS: BP 111/63
[2018-11-10 05:54] LABS: GLUCOMETER DEV NAME(LOC) BV2S.; GLUCOSE,POINT OF CARE 125 MG/DL (70-110)
[2018-11-10 08:25] VITALS: BP 108/72
[2018-11-10] MEDS: DOCUSATE SODIUM 100 MG CAPSULE PO SCH (08:53)
[2018-11-10] MEDS: ARIPiprazole 15 MG TABLET PO SCH (08:53)
[2018-11-10] MEDS: NICOTINE 21 MG/24 HOUR PATCH TD SCH (08:53)
[2018-11-10] MEDS: TAMSULOSIN HCL 0.4 MG CAPSULE PO SCH (08:53)
[2018-11-10] MEDS: SULFAMETHOX/TRIMETH DS 800-160 MG/TABLET PO SCH ×2 (08:53→17:02)
[2018-11-10] MEDS: DIVALPROEX SODIUM 500 MG DR TABLET PO SCH ×2 (08:53→21:10)
[2018-11-10] MEDS: OMEPRAZOLE 20 MG CAPSULE PO SCH (08:53)
[2018-11-10] MEDS: INSULIN LISPRO 100 UNITS/ML SQ PRN ×2 (10:53→22:15)
[2018-11-10 12:35] LABS: GLUCOMETER DEV NAME(LOC) BV2S.; GLUCOSE,POINT OF CARE 148 MG/DL (70-110)
[2018-11-10 16:33] VITALS: BP 101/68
[2018-11-10] MEDS: LORazepam 2 MG TABLET PO PRN (18:07)
[2018-11-11 05:17] VITALS: BP 116/68
[2018-11-11 08:39] VITALS: BP 100/71
[2018-11-11] MEDS: DOCUSATE SODIUM 100 MG CAPSULE PO SCH (09:29)
[2018-11-11] MEDS: OMEPRAZOLE 20 MG CAPSULE PO SCH (09:29)
[2018-11-11] MEDS: DIVALPROEX SODIUM 500 MG DR TABLET PO SCH ×2 (09:29→20:51)
[2018-11-11] MEDS: SULFAMETHOX/TRIMETH DS 800-160 MG/TABLET PO SCH ×2 (09:29→16:57)
[2018-11-11] MEDS: ARIPiprazole 15 MG TABLET PO SCH (09:29)
[2018-11-11] MEDS: NICOTINE 21 MG/24 HOUR PATCH TD SCH (09:30)
[2018-11-11] MEDS: TAMSULOSIN HCL 0.4 MG CAPSULE PO SCH (09:30)
[2018-11-11 13:59] LABS: GLUCOMETER DEV NAME(LOC) BV2S.; GLUCOSE,POINT OF CARE 122 MG/DL (70-110)
[2018-11-11 14:00] LABS: GLUCOMETER DEV NAME(LOC) BV2S.; GLUCOSE,POINT OF CARE 146 MG/DL (70-110)
[2018-11-11 14:01] LABS: GLUCOMETER DEV NAME(LOC) BV2S.; GLUCOSE,POINT OF CARE 90 MG/DL (70-110)
[2018-11-11 14:02] LABS: GLUCOMETER DEV NAME(LOC) BV2S.; GLUCOSE,POINT OF CARE 119 MG/DL (70-110)
[2018-11-11 16:19] LABS: GLUCOMETER DEV NAME(LOC) BV2S.; GLUCOSE,POINT OF CARE 110 MG/DL (70-110)
[2018-11-11 16:55] VITALS: BP 105/61
[2018-11-11] MEDS: INSULIN LISPRO 100 UNITS/ML SQ PRN (20:09)
[2018-11-11] MEDS: ZOLPIDEM TARTRATE 10 MG TABLET PO PRN (21:47)
[2018-11-12 00:35] VITALS: BP 122/76
[2018-11-12 08:52] LABS: GLUCOMETER DEV NAME(LOC) BV2S.; GLUCOSE,POINT OF CARE 90 MG/DL (70-110)
[2018-11-12 08:57] LABS: GLUCOMETER DEV NAME(LOC) BV2S.; GLUCOSE,POINT OF CARE 204 MG/DL (70-110)
[2018-11-12] MEDS: ARIPiprazole 15 MG TABLET PO SCH (09:00)
[2018-11-12] MEDS: OMEPRAZOLE 20 MG CAPSULE PO SCH (09:00)
[2018-11-12] MEDS: DOCUSATE SODIUM 100 MG CAPSULE PO SCH (09:00)
[2018-11-12] MEDS: DIVALPROEX SODIUM 500 MG DR TABLET PO SCH ×2 (09:00→20:41)
[2018-11-12] MEDS: SULFAMETHOX/TRIMETH DS 800-160 MG/TABLET PO SCH ×2 (09:00→16:37)
[2018-11-12] MEDS: TAMSULOSIN HCL 0.4 MG CAPSULE PO SCH (09:00)
[2018-11-12] MEDS: NICOTINE 21 MG/24 HOUR PATCH TD SCH (09:01)
[2018-11-12 09:13] VITALS: BP 115/69
[2018-11-12 16:14] LABS: GLUCOMETER DEV NAME(LOC) BV2S.; GLUCOSE,POINT OF CARE 103 MG/DL (70-110)
[2018-11-12 16:21] VITALS: BP 124/77
[2018-11-12 20:54] LABS: GLUCOMETER DEV NAME(LOC) BV2S.; GLUCOSE,POINT OF CARE 92 MG/DL (70-110)
[2018-11-12] MEDS: ZOLPIDEM TARTRATE 10 MG TABLET PO PRN (20:59)
[2018-11-13 05:59] VITALS: BP 124/96
[2018-11-13 06:14] LABS: GLUCOMETER DEV NAME(LOC) BV2S.; GLUCOSE,POINT OF CARE 147 MG/DL (70-110)
[2018-11-13] MEDS: INSULIN LISPRO 100 UNITS/ML SQ PRN ×2 (06:39→16:40)
[2018-11-13 08:36] VITALS: BP 111/64
[2018-11-13] MEDS: DIVALPROEX SODIUM 500 MG DR TABLET PO SCH ×2 (08:42→20:24)
[2018-11-13] MEDS: DOCUSATE SODIUM 100 MG CAPSULE PO SCH (08:42)
[2018-11-13] MEDS: OMEPRAZOLE 20 MG CAPSULE PO SCH (08:42)
[2018-11-13] MEDS: NICOTINE 21 MG/24 HOUR PATCH TD SCH (08:42)
[2018-11-13] MEDS: ARIPiprazole 15 MG TABLET PO SCH (08:42)
[2018-11-13] MEDS: TAMSULOSIN HCL 0.4 MG CAPSULE PO SCH (08:42)
[2018-11-13] MEDS: SULFAMETHOX/TRIMETH DS 800-160 MG/TABLET PO SCH ×2 (08:42→16:36)
[2018-11-13 11:04] LABS: GLUCOMETER DEV NAME(LOC) BV2S.; GLUCOSE,POINT OF CARE 121 MG/DL (70-110)
[2018-11-13 16:14] LABS: GLUCOMETER DEV NAME(LOC) BV2S.; GLUCOSE,POINT OF CARE 145 MG/DL (70-110)
[2018-11-13 16:25] VITALS: BP 106/68
[2018-11-13] MEDS: ZOLPIDEM TARTRATE 10 MG TABLET PO PRN (22:01)
[2018-11-14 01:03] VITALS: BP 112/67
[2018-11-14] MEDS: MetFORMIN HCL 500 MG TABLET PO SCH ×2 (06:45→17:07)
[2018-11-14 08:06] VITALS: BP 96/67
[2018-11-14] MEDS: OMEPRAZOLE 20 MG CAPSULE PO SCH (08:40)
[2018-11-14] MEDS: DOCUSATE SODIUM 100 MG CAPSULE PO SCH (08:40)
[2018-11-14] MEDS: TAMSULOSIN HCL 0.4 MG CAPSULE PO SCH (08:40)
[2018-11-14] MEDS: DIVALPROEX SODIUM 500 MG DR TABLET PO SCH ×2 (08:40→20:06)
[2018-11-14] MEDS: ARIPiprazole 10 MG TABLET PO SCH (08:41)
[2018-11-14] MEDS: NICOTINE 21 MG/24 HOUR PATCH TD SCH (08:41)
[2018-11-14 10:48] LABS: GLUCOMETER DEV NAME(LOC) BV2S.; GLUCOSE,POINT OF CARE 95 MG/DL (70-110)
[2018-11-14 10:51] LABS: GLUCOMETER DEV NAME(LOC) BV2S.; GLUCOSE,POINT OF CARE 130 MG/DL (70-110)
[2018-11-14 10:59] LABS: GLUCOMETER DEV NAME(LOC) BV2S.; GLUCOSE,POINT OF CARE 114 MG/DL (70-110)
[2018-11-14 16:21] VITALS: BP 102/63
[2018-11-14 17:40] LABS: GLUCOMETER DEV NAME(LOC) BV2S.; GLUCOSE,POINT OF CARE 117 MG/DL (70-110)
[2018-11-14] MEDS: ZOLPIDEM TARTRATE 10 MG TABLET PO PRN (20:42)
[2018-11-14 20:54] LABS: GLUCOMETER DEV NAME(LOC) BV2S.; GLUCOSE,POINT OF CARE 101 MG/DL (70-110)
[2018-11-15 04:27] VITALS: BP 109/69
[2018-11-15] MEDS: LORazepam 2 MG TABLET PO PRN (04:45)
[2018-11-15 06:14] LABS: GLUCOMETER DEV NAME(LOC) BV2S.; GLUCOSE,POINT OF CARE 134 MG/DL (70-110)
[2018-11-15] MEDS: MetFORMIN HCL 500 MG TABLET PO SCH ×2 (06:49→16:37)
[2018-11-15 08:23] VITALS: BP 116/74
[2018-11-15] MEDS: TAMSULOSIN HCL 0.4 MG CAPSULE PO SCH (08:34)
[2018-11-15] MEDS: DIVALPROEX SODIUM 500 MG DR TABLET PO SCH ×2 (08:34→20:36)
[2018-11-15] MEDS: DOCUSATE SODIUM 100 MG CAPSULE PO SCH (08:34)
[2018-11-15] MEDS: OMEPRAZOLE 20 MG CAPSULE PO SCH (08:34)
[2018-11-15] MEDS: ARIPiprazole 10 MG TABLET PO SCH (08:34)
[2018-11-15] MEDS: NICOTINE 21 MG/24 HOUR PATCH TD SCH (08:35)
[2018-11-15 16:07] VITALS: BP 116/78
[2018-11-15 16:24] LABS: GLUCOMETER DEV NAME(LOC) BV2S.; GLUCOSE,POINT OF CARE 149 MG/DL (70-110)
[2018-11-15] MEDS: INSULIN LISPRO 100 UNITS/ML SQ PRN (16:38)
[2018-11-15] MEDS: ZOLPIDEM TARTRATE 10 MG TABLET PO PRN (21:01)
[2018-11-16 01:15] VITALS: BP 139/84
[2018-11-16] MEDS: LORazepam 2 MG TABLET PO PRN (01:26)
[2018-11-16 06:35] LABS: GLUCOMETER DEV NAME(LOC) BV2S.; GLUCOSE,POINT OF CARE 118 MG/DL (70-110)
[2018-11-16] MEDS: MetFORMIN HCL 500 MG TABLET PO SCH ×2 (06:51→16:59)
[2018-11-16 08:50] VITALS: BP 105/73
[2018-11-16] MEDS: DOCUSATE SODIUM 100 MG CAPSULE PO SCH (08:52)
[2018-11-16] MEDS: DIVALPROEX SODIUM 500 MG DR TABLET PO SCH ×2 (08:52→20:32)
[2018-11-16] MEDS: OMEPRAZOLE 20 MG CAPSULE PO SCH (08:52)
[2018-11-16] MEDS: ARIPiprazole 10 MG TABLET PO SCH (08:52)
[2018-11-16] MEDS: NICOTINE 21 MG/24 HOUR PATCH TD SCH (08:52)
[2018-11-16] MEDS: TAMSULOSIN HCL 0.4 MG CAPSULE PO SCH (08:52)
[2018-11-16 16:03] VITALS: BP 108/69
[2018-11-16 16:29] LABS: GLUCOMETER DEV NAME(LOC) BV2S.; GLUCOSE,POINT OF CARE 125 MG/DL (70-110)
[2018-11-16] MEDS: ZOLPIDEM TARTRATE 10 MG TABLET PO PRN (21:01)
[2018-11-17 01:04] VITALS: BP 110/68
[2018-11-17] MEDS: LORazepam 2 MG TABLET PO PRN (01:11)
[2018-11-17] MEDS: MetFORMIN HCL 500 MG TABLET PO SCH ×2 (06:21→17:15)
[2018-11-17 06:44] LABS: GLUCOMETER DEV NAME(LOC) BV2S.; GLUCOSE,POINT OF CARE 94 MG/DL (70-110)
[2018-11-17 08:39] VITALS: BP 139/88
[2018-11-17] MEDS: DOCUSATE SODIUM 100 MG CAPSULE PO SCH (08:48)
[2018-11-17] MEDS: OMEPRAZOLE 20 MG CAPSULE PO SCH (08:48)
[2018-11-17] MEDS: TAMSULOSIN HCL 0.4 MG CAPSULE PO SCH (08:48)
[2018-11-17] MEDS: NICOTINE 21 MG/24 HOUR PATCH TD SCH (08:48)
[2018-11-17] MEDS: ARIPiprazole 10 MG TABLET PO SCH (08:48)
[2018-11-17] MEDS: DIVALPROEX SODIUM 500 MG DR TABLET PO SCH ×2 (08:48→20:34)
[2018-11-17 16:15] VITALS: BP 110/66
[2018-11-17 17:10] LABS: GLUCOMETER DEV NAME(LOC) BV2S.; GLUCOSE,POINT OF CARE 135 MG/DL (70-110)
[2018-11-17] MEDS: HALOPERIDOL 5 MG TABLET PO PRN (23:30)
[2018-11-18 01:09] VITALS: BP 107/73
[2018-11-18] MEDS: MetFORMIN HCL 500 MG TABLET PO SCH ×2 (06:42→16:33)
[2018-11-18 07:04] LABS: GLUCOMETER DEV NAME(LOC) BV2S.; GLUCOSE,POINT OF CARE 96 MG/DL (70-110)
[2018-11-18 07:57] VITALS: BP 109/68
[2018-11-18] MEDS: DIVALPROEX SODIUM 500 MG DR TABLET PO SCH ×2 (08:33→20:41)
[2018-11-18] MEDS: DOCUSATE SODIUM 100 MG CAPSULE PO SCH (08:33)
[2018-11-18] MEDS: TAMSULOSIN HCL 0.4 MG CAPSULE PO SCH (08:33)
[2018-11-18] MEDS: ARIPiprazole 10 MG TABLET PO SCH (08:33)
[2018-11-18] MEDS: OMEPRAZOLE 20 MG CAPSULE PO SCH (08:33)
[2018-11-18] MEDS: NICOTINE 21 MG/24 HOUR PATCH TD SCH (08:34)
[2018-11-18 09:23] VITALS: BP 109/68
[2018-11-18 16:09] VITALS: BP 114/66
[2018-11-18 16:19] LABS: GLUCOMETER DEV NAME(LOC) BV2S.; GLUCOSE,POINT OF CARE 102 MG/DL (70-110)
[2018-11-18] MEDS: HALOPERIDOL 5 MG TABLET PO PRN (21:38)
[2018-11-19 01:51] VITALS: BP 112/72
[2018-11-19] MEDS: MetFORMIN HCL 500 MG TABLET PO SCH ×2 (06:40→16:59)
[2018-11-19 06:43] LABS: GLUCOMETER DEV NAME(LOC) BV2S.; GLUCOSE,POINT OF CARE 75 MG/DL (70-110)
[2018-11-19 08:18] VITALS: BP 118/72
[2018-11-19] MEDS: TAMSULOSIN HCL 0.4 MG CAPSULE PO SCH (08:33)
[2018-11-19] MEDS: NICOTINE 21 MG/24 HOUR PATCH TD SCH (08:33)
[2018-11-19] MEDS: ARIPiprazole 10 MG TABLET PO SCH (08:33)
[2018-11-19] MEDS: DIVALPROEX SODIUM 500 MG DR TABLET PO SCH ×2 (08:33→21:17)
[2018-11-19] MEDS: OMEPRAZOLE 20 MG CAPSULE PO SCH (08:33)
[2018-11-19] MEDS: DOCUSATE SODIUM 100 MG CAPSULE PO SCH (08:33)
[2018-11-19 16:19] LABS: GLUCOMETER DEV NAME(LOC) BV2S.; GLUCOSE,POINT OF CARE 126 MG/DL (70-110)
[2018-11-19 16:29] VITALS: BP 101/67
[2018-11-19 22:14] LABS: GLUCOMETER DEV NAME(LOC) BV2S.; GLUCOSE,POINT OF CARE 130 MG/DL (70-110)
[2018-11-20 01:13] VITALS: BP 114/62
[2018-11-20 06:14] LABS: GLUCOMETER DEV NAME(LOC) BV2S.; GLUCOSE,POINT OF CARE 112 MG/DL (70-110)
[2018-11-20] MEDS: MetFORMIN HCL 500 MG TABLET PO SCH ×2 (06:45→16:38)
[2018-11-20 08:12] VITALS: BP 118/78
[2018-11-20] MEDS: DIVALPROEX SODIUM 500 MG DR TABLET PO SCH ×2 (08:33→20:36)
[2018-11-20] MEDS: DOCUSATE SODIUM 100 MG CAPSULE PO SCH (08:33)
[2018-11-20] MEDS: TAMSULOSIN HCL 0.4 MG CAPSULE PO SCH (08:33)
[2018-11-20] MEDS: OMEPRAZOLE 20 MG CAPSULE PO SCH (08:33)
[2018-11-20] MEDS: ARIPiprazole 10 MG TABLET PO SCH (08:33)
[2018-11-20] MEDS: NICOTINE 21 MG/24 HOUR PATCH TD SCH (08:34)
[2018-11-20 16:24] LABS: GLUCOMETER DEV NAME(LOC) BV2S.; GLUCOSE,POINT OF CARE 133 MG/DL (70-110)
[2018-11-20 16:29] VITALS: BP 109/62
[2018-11-20] MEDS: HALOPERIDOL 5 MG TABLET PO PRN (21:43)
[2018-11-20] MEDS: ZOLPIDEM TARTRATE 10 MG TABLET PO PRN (23:38)
[2018-11-21 03:19] VITALS: BP 121/76
[2018-11-21 06:29] LABS: GLUCOMETER DEV NAME(LOC) BV2S.; GLUCOSE,POINT OF CARE 86 MG/DL (70-110)
[2018-11-21] MEDS: MetFORMIN HCL 500 MG TABLET PO SCH ×2 (06:29→16:37)
[2018-11-21 08:08] VITALS: BP 110/73
[2018-11-21] MEDS: DIVALPROEX SODIUM 500 MG DR TABLET PO SCH ×2 (08:20→20:29)
[2018-11-21] MEDS: OMEPRAZOLE 20 MG CAPSULE PO SCH (08:20)
[2018-11-21] MEDS: ARIPiprazole 10 MG TABLET PO SCH (08:20)
[2018-11-21] MEDS: NICOTINE 21 MG/24 HOUR PATCH TD SCH (08:20)
[2018-11-21] MEDS: DOCUSATE SODIUM 100 MG CAPSULE PO SCH (08:20)
[2018-11-21] MEDS: TAMSULOSIN HCL 0.4 MG CAPSULE PO SCH (08:20)
[2018-11-21 16:09] LABS: GLUCOMETER DEV NAME(LOC) BV2S.; GLUCOSE,POINT OF CARE 113 MG/DL (70-110)
[2018-11-21 16:30] VITALS: BP 107/62
[2018-11-21] MEDS: ZOLPIDEM TARTRATE 10 MG TABLET PO PRN (20:54)
[2018-11-22 06:19] LABS: GLUCOMETER DEV NAME(LOC) BV2S.; GLUCOSE,POINT OF CARE 75 MG/DL (70-110)
[2018-11-22 06:41] VITALS: BP 118/70
[2018-11-22] MEDS: MetFORMIN HCL 500 MG TABLET PO SCH ×2 (06:46→17:03)
[2018-11-22 08:31] VITALS: BP 127/71
[2018-11-22] MEDS: OMEPRAZOLE 20 MG CAPSULE PO SCH (08:35)
[2018-11-22] MEDS: DIVALPROEX SODIUM 500 MG DR TABLET PO SCH ×2 (08:35→20:04)
[2018-11-22] MEDS: ARIPiprazole 10 MG TABLET PO SCH (08:35)
[2018-11-22] MEDS: DOCUSATE SODIUM 100 MG CAPSULE PO SCH (08:35)
[2018-11-22] MEDS: TAMSULOSIN HCL 0.4 MG CAPSULE PO SCH (08:35)
[2018-11-22] MEDS: NICOTINE 21 MG/24 HOUR PATCH TD SCH (08:36)
[2018-11-22 16:32] VITALS: BP 100/60
[2018-11-22 16:39] LABS: GLUCOMETER DEV NAME(LOC) BV2S.; GLUCOSE,POINT OF CARE 125 MG/DL (70-110)
[2018-11-22] MEDS: ZOLPIDEM TARTRATE 10 MG TABLET PO PRN (20:59)
[2018-11-23 00:20] VITALS: BP 116/72
[2018-11-23] MEDS: HALOPERIDOL 5 MG TABLET PO PRN (00:46)
[2018-11-23 06:19] LABS: GLUCOMETER DEV NAME(LOC) BV2S.; GLUCOSE,POINT OF CARE 91 MG/DL (70-110)
[2018-11-23] MEDS: MetFORMIN HCL 500 MG TABLET PO SCH ×2 (06:39→17:02)
[2018-11-23] MEDS: DIVALPROEX SODIUM 500 MG DR TABLET PO SCH ×2 (08:25→20:40)
[2018-11-23] MEDS: OMEPRAZOLE 20 MG CAPSULE PO SCH (08:25)
[2018-11-23] MEDS: ARIPiprazole 10 MG TABLET PO SCH (08:25)
[2018-11-23] MEDS: TAMSULOSIN HCL 0.4 MG CAPSULE PO SCH (08:25)
[2018-11-23] MEDS: DOCUSATE SODIUM 100 MG CAPSULE PO SCH (08:25)
[2018-11-23] MEDS: NICOTINE 21 MG/24 HOUR PATCH TD SCH (08:29)
[2018-11-23 08:32] VITALS: BP 109/74
[2018-11-23 16:01] VITALS: BP 100/64
[2018-11-23 16:24] LABS: GLUCOMETER DEV NAME(LOC) BV2S.; GLUCOSE,POINT OF CARE 124 MG/DL (70-110)
[2018-11-23] MEDS: ZOLPIDEM TARTRATE 10 MG TABLET PO PRN (22:54)
[2018-11-24 00:08] VITALS: BP 110/72
[2018-11-24 06:19] LABS: GLUCOMETER DEV NAME(LOC) BV2S.; GLUCOSE,POINT OF CARE 87 MG/DL (70-110)
[2018-11-24] MEDS: MetFORMIN HCL 500 MG TABLET PO SCH (06:54)
[2018-11-24 08:22] VITALS: BP 112/65
[2018-11-24] MEDS: TAMSULOSIN HCL 0.4 MG CAPSULE PO SCH (08:42)
[2018-11-24] MEDS: DOCUSATE SODIUM 100 MG CAPSULE PO SCH (08:42)
[2018-11-24] MEDS: DIVALPROEX SODIUM 500 MG DR TABLET PO SCH (08:42)
[2018-11-24] MEDS: OMEPRAZOLE 20 MG CAPSULE PO SCH (08:42)
[2018-11-24] MEDS: ARIPiprazole 10 MG TABLET PO SCH (08:42)
[2018-11-24] MEDS: NICOTINE 21 MG/24 HOUR PATCH TD SCH (08:49)
[2018-11-24] MEDS ORDERED: ARIP10TA8 PO (09:44)
[2018-11-24] MEDS ORDERED: TAMS0.4C32 PO (09:48)
[2018-11-24] MEDS ORDERED: METF-960 PO (12:26)
== END 2018-11-24 15:15 | disposition home or self-care (01) | DRG 885 ==
LOC: B2X 13:01
PROVIDERS: ADMIT Psychiatry & Neurology Psychiatry; ATTEND Psychiatry & Neurology Psychiatry
DX: F25.9 Schizoaffective disorder, unspecified (principal); B19.20 Unspecified viral hepatitis C without hepatic coma; E44.0 Moderate protein-calorie malnutrition; R45.851 Suicidal ideations; E11.9 Type 2 diabetes mellitus without complications; F15.10 Other stimulant abuse, uncomplicated; F17.200 Nicotine dependence, unspecified, uncomplicated; F41.9 Anxiety disorder, unspecified; G47.00 Insomnia, unspecified; I10 Essential (primary) hypertension; J44.9 Chronic obstructive pulmonary disease, unspecified; K21.9 Gastro-esophageal reflux disease without esophagitis; K74.60 Unspecified cirrhosis of liver; M19.90 Unspecified osteoarthritis, unspecified site; N40.1 Benign prostatic hyperplasia with lower urinary tract symptoms; R32 Unspecified urinary incontinence; Z68.21 Body mass index [BMI] 21.0-21.9, adult; Z28.21 Immunization not carried out because of patient refusal
CPT/HCPCS: 83036; 84439; 84443; 87081; 87086

== ENCOUNTER 2021-07-14 22:17 | Emergency (ER) | payer OTHER ==
[~2021-07-14] VITALS: Ht 175.3 cm; Wt 57.7 kg
[~2021-07-14 22:17] MED LIST changes: +ARIP10TA38 PO; -ARIP15TA2 PO; +DIVA-112 PO; -DIVA-78 PO; -FERR325T22 PO; -FOLI1TAB15 PO; +METF-960 PO; -METO25XL PO; -NICO-704 TD; +TAMS-13 PO
[2021-07-14] MEDS ORDERED: LIDOCAINE 1% 10 ML VIAL ID ONE (23:00)
[2021-07-14 23:01] LABS: APPEARANCE,URINE TURBID (CLEAR); BILIRUBIN,URINE NEGATIVE (NEGATIVE); GLUCOSE, URINE (UA) NEGATIVE (NEGATIVE); KETONES,URINE TRACE mg/dL (NEGATIVE); LEUKOCYTE ESTERASE ,URINE LARGE (NEGATIVE); NITRATE,URINE POSITIVE (NEGATIVE); OCCULT BLOOD,URINE MODERATE (NEGATIVE); PROTEIN,URINE SEE CONFIRM (NEGATIVE)
[2021-07-14 23:06] LABS: SULFOSALICYLIC ACID,URINE 4+ (Negative)
[2021-07-14 23:07] LABS: BACTERIA,URINE Moderate /HPF (None Seen); RBC,URINE 26-50 /HPF (0-2); SQUAMOUS EPITHELIAL CELL,UR Few /LPF (None Seen); WBC,URINE Full Field /HPF (0-5)
[2021-07-14 23:30] VITALS: BP 135/78
[2021-07-14] MEDS ORDERED: CIPROFLOXACIN HCL 250 MG TABLET PO ONE (23:45)
== END 2021-07-15 01:20 | disposition home or self-care (01) ==
LOC: EDUNIT# 22:17 → EMS 22:20
DX: N39.0 Urinary tract infection, site not specified (principal); R33.9 Retention of urine, unspecified; E11.9 Type 2 diabetes mellitus without complications; I10 Essential (primary) hypertension; F31.9 Bipolar disorder, unspecified; I11.9 Hypertensive heart disease without heart failure
CPT/HCPCS: 51702; 81001; 81002; 87077; 87086; 87186; 99284; J3490

== ENCOUNTER 2021-09-01 04:23 | Emergency (ER) | payer OTHER ==
[~2021-09-01] VITALS: Ht 167.6 cm; Wt 63.6 kg
[~2021-09-01 04:23] MED LIST changes: +METF-1211 PO; -METF-960 PO
[2021-09-01 04:50] LABS: GLUCOMETER DEV NAME(LOC) ERT.5; GLUCOSE,POINT OF CARE 188 MG/DL (70-110)
[2021-09-01] MEDS ORDERED: RisperiDONE 1 MG TABLET PO ONE (05:30)
[2021-09-01 06:19] LABS: APPEARANCE,URINE SL CLOUDY (CLEAR); BILIRUBIN,URINE NEGATIVE (NEGATIVE); GLUCOSE, URINE (UA) NEGATIVE (NEGATIVE); KETONES,URINE TRACE mg/dL (NEGATIVE); LEUKOCYTE ESTERASE ,URINE MODERATE (NEGATIVE); NITRATE,URINE NEGATIVE (NEGATIVE); OCCULT BLOOD,URINE LARGE (NEGATIVE); PH,URINE 6.5 (5.0-8.0); PROTEIN,URINE SEE CONFIRM (NEGATIVE)
[2021-09-01 06:56] LABS: BACTERIA,URINE Few /HPF (None Seen); SQUAMOUS EPITHELIAL CELL,UR Few /LPF (None Seen); SULFOSALICYLIC ACID,URINE 3+ (Negative); WBC,URINE >100 /HPF (0-5)
[2021-09-01 07:22] VITALS: BP 108/72
== END 2021-09-01 07:22 | disposition home or self-care (01) ==
LOC: EMS 04:24
DX: T83.091A Other mechanical complication of indwelling urethral catheter, initial encounter (principal); Y84.6 Urinary catheterization as the cause of abnormal reaction of the patient, or of later complication, without mention of misadventure at the time of the procedure
CPT/HCPCS: 81001; 81002; 82962; 87086; 99284

== ENCOUNTER 2021-11-03 19:27 | Emergency (ER) | payer OTHER ==
[~2021-11-03] VITALS: Ht 172.7 cm; Wt 75.0 kg
[2021-11-03 21:50] LABS: BASOPHILS % (AUTO) 0.7 % (0.0-2.0); EOSINOPHILS % (AUTO) 1.7 % (1.0-6.0); HEMOGLOBIN 7.9 g/dL (13.5-17.5); LYMPHOCYTES # (AUTO) 0.6 K/uL (1.0-4.8); LYMPHOCYTES % (AUTO) 24.5 % (22.0-44.0); MEAN CORPUSCULAR HGB CONC 32.8 G/dL (31.0-37.0); MEAN CORPUSCULAR VOLUME 76 fL (80-100); MONOCYTES # (AUTO) 0.4 K/uL (0.1-1.0); NEUTROPHILS # (AUTO) 1.4 K/uL (1.8-7.7); NEUTROPHILS % (AUTO) 58.1 % (40.0-70.0); PLATELET COUNT (AUTO) 137 K/uL (150-450); RED BLOOD CELL COUNT(AUTO) 3.14 MIL/uL (4.50-5.90); RED CELL DISTRIBUTION WIDTH 18.4 % (11.5-14.5)
[2021-11-03 22:07] LABS: ANION GAP 13 mmol/L (8-16); CALCIUM, TOTAL 8.3 mg/dL (8.8-10.5); CARBON DIOXIDE 27 mmol/L (22-29); CHLORIDE 104 mmol/L (98-107); CREATININE 0.97 mg/dL (0.60-1.30); GLOMERULAR FILTR. RATE CALC > 60 mL/min (>60); GLUCOSE,RANDOM 121 mg/dL (70-110); POTASSIUM 3.4 mmol/L (3.5-5.1); SODIUM SERUM 144 mmol/L (136-145); UREA NITROGEN, BLOOD 34 mg/dL (7-18)
[2021-11-03 22:13] LABS: ALANINE AMINOTRANSFERASE 72 U/L (12-78); ALBUMIN 2.8 g/dL (3.4-5.0); ALKALINE PHOSPHATASE 167 U/L (46-116); ASPARTATE AMINOTRANSFERASE 123 U/L (15-37); BILIRUBIN,TOTAL 0.6 mg/dL (0.1-1.0); TOTAL PROTEIN, SERUM 7.6 g/dL (6.4-8.2)
[2021-11-03 22:14] LABS: AMPHET/METH SCREEN,URINE POSITIVE (NEGATIVE); BARBITURATE SCREEN, URINE NEGATIVE (NEGATIVE); BENZODIAZEPINES SCREEN,URINE NEGATIVE (NEGATIVE); CANNABINOID SCREEN,URINE NEGATIVE (NEGATIVE); COCAINE SCREEN,URINE NEGATIVE (NEGATIVE); METHADONE SCREEN, URINE NEGATIVE (NEGATIVE); OPIATE SCREEN,URINE NEGATIVE (NEGATIVE)
[2021-11-03 22:24] LABS: PHENCYCLIDINE SCREEN,URINE NEGATIVE (NEGATIVE)
[2021-11-03 22:52] LABS: APPEARANCE,URINE CLOUDY (CLEAR); BILIRUBIN,URINE NEGATIVE (NEGATIVE); GLUCOSE, URINE (UA) NEGATIVE (NEGATIVE); KETONES,URINE 40 mg/dL (NEGATIVE); LEUKOCYTE ESTERASE ,URINE LARGE (NEGATIVE); NITRATE,URINE POSITIVE (NEGATIVE); OCCULT BLOOD,URINE MODERATE (NEGATIVE); PROTEIN,URINE POS 1+ (NEGATIVE)
[2021-11-03 23:14] LABS: BACTERIA,URINE Many /HPF (None Seen); WBC,URINE 51-100 /HPF (0-5)
[2021-11-03] MEDS ORDERED: LORazepam 2 MG/ML VIAL IM ONE (23:15)
[2021-11-04] MEDS ORDERED: HALOPERIDOL LACTATE 5 MG/ML VIAL IM ONE (00:15)
[2021-11-04] MEDS ORDERED: DiphenhydrAMINE HCL 50 MG/ML VIAL IM ONE (00:15)
[2021-11-04 03:00] LABS: APPEARANCE,URINE CLEAR (CLEAR); BILIRUBIN,URINE NEGATIVE (NEGATIVE); GLUCOSE, URINE (UA) NEGATIVE (NEGATIVE); KETONES,URINE 15 mg/dL (NEGATIVE); LEUKOCYTE ESTERASE ,URINE TRACE (NEGATIVE); NITRATE,URINE POSITIVE (NEGATIVE); OCCULT BLOOD,URINE TRACE (NEGATIVE); PROTEIN,URINE TRACE (NEGATIVE)
[2021-11-04 03:07] LABS: BACTERIA,URINE Few /HPF (None Seen); WBC,URINE 0-2 /HPF (0-5)
[2021-11-04 04:05] VITALS: BP 148/72
== END 2021-11-04 04:50 | disposition home or self-care (01) ==
LOC: EMS 19:30
DX: T83.098A Other mechanical complication of other urinary catheter, initial encounter (principal); F15.10 Other stimulant abuse, uncomplicated; I10 Essential (primary) hypertension; E11.9 Type 2 diabetes mellitus without complications; F20.9 Schizophrenia, unspecified; F17.210 Nicotine dependence, cigarettes, uncomplicated; Z88.6 Allergy status to analgesic agent; Z79.899 Other long term (current) drug therapy
CPT/HCPCS: 36415; 80053; 80307; 81001; 85025; 87086; 96372; 99283; G0480; J2060

== ENCOUNTER 2021-11-04 12:25 | Emergency (ER) | payer OTHER ==
[~2021-11-04] VITALS: Ht 175.3 cm; Wt 40.5 kg
[2021-11-04 16:52] LABS: AMPHET/METH SCREEN,URINE POSITIVE (NEGATIVE); BARBITURATE SCREEN, URINE NEGATIVE (NEGATIVE); BENZODIAZEPINES SCREEN,URINE NEGATIVE (NEGATIVE); CANNABINOID SCREEN,URINE NEGATIVE (NEGATIVE); COCAINE SCREEN,URINE NEGATIVE (NEGATIVE); METHADONE SCREEN, URINE NEGATIVE (NEGATIVE); OPIATE SCREEN,URINE NEGATIVE (NEGATIVE); PHENCYCLIDINE SCREEN,URINE NEGATIVE (NEGATIVE)
[2021-11-04 17:30] LABS: APPEARANCE,URINE CLOUDY (CLEAR); BILIRUBIN,URINE NEGATIVE (NEGATIVE); GLUCOSE, URINE (UA) NEGATIVE (NEGATIVE); KETONES,URINE 15 mg/dL (NEGATIVE); LEUKOCYTE ESTERASE ,URINE LARGE (NEGATIVE); NITRATE,URINE POSITIVE (NEGATIVE); OCCULT BLOOD,URINE MODERATE (NEGATIVE); PH,URINE 6.5 (5.0-8.0); PROTEIN,URINE SEE CONFIRM (NEGATIVE)
[2021-11-04 17:36] LABS: BACTERIA,URINE Moderate /HPF (None Seen); SQUAMOUS EPITHELIAL CELL,UR Moderate /LPF (None Seen); SULFOSALICYLIC ACID,URINE 3+ (Negative); WBC,URINE >100 /HPF (0-5)
[2021-11-04 19:44] VITALS: BP 126/70
[2021-11-04] MEDS ORDERED: HALOPERIDOL LACTATE 5 MG/ML VIAL IM ONE (21:15)
[2021-11-04] MEDS ORDERED: DiphenhydrAMINE HCL 50 MG/ML VIAL IM ONE (21:15)
[2021-11-04] MEDS ORDERED: LORazepam 2 MG/ML VIAL IM ONE (21:15)
[2021-11-04] MEDS: CIPROFLOXACIN HCL 250 MG TABLET PO ONE (21:28)
[2021-11-04] MEDS: CEPHALEXIN MONOHYDRATE 500 MG CAPSULE PO ONE (21:29)
== END 2021-11-04 22:44 | disposition home or self-care (01) ==
LOC: MERGE 12:27 → EMS 12:27 → EDBD 12:27 → EMS 22:44
DX: F25.9 Schizoaffective disorder, unspecified (principal); F15.10 Other stimulant abuse, uncomplicated; N39.0 Urinary tract infection, site not specified; Z76.5 Malingerer [conscious simulation]
CPT/HCPCS: 81001; 81002; 87086; 99285; J1200; J1630; J2060

== ENCOUNTER 2021-11-25 18:34 | Emergency (ER) | payer OTHER ==
[~2021-11-25] VITALS: Ht 175.3 cm; Wt 68.2 kg
[2021-11-25 19:46] VITALS: BP 105/58
[2021-11-25 19:50] LABS: GLUCOSE,POINT OF CARE 135 MG/DL (70-110)
== END 2021-11-25 23:49 | disposition left against medical advice (07) ==
LOC: EMS 18:36
DX: R10.9 Unspecified abdominal pain (principal); Z53.21 Procedure and treatment not carried out due to patient leaving prior to being seen by health care provider
CPT/HCPCS: 82962

== ENCOUNTER 2021-11-30 22:14 | Emergency (ER) | payer OTHER ==
[~2021-11-30] VITALS: Ht 175.3 cm; Wt 68.2 kg
[2021-12-01] MEDS ORDERED: DiphenhydrAMINE HCL 25 MG CAPSULE PO ONE (00:45)
[2021-12-01] MEDS ORDERED: DIPH25CA85 PO (01:07)
[2021-12-01 01:08] VITALS: BP 141/87
== END 2021-12-01 01:51 | disposition home or self-care (01) ==
LOC: EMS 22:15
DX: R18.8 Other ascites (principal); L29.9 Pruritus, unspecified; E11.9 Type 2 diabetes mellitus without complications; Z88.6 Allergy status to analgesic agent; Z79.899 Other long term (current) drug therapy; F17.210 Nicotine dependence, cigarettes, uncomplicated
CPT/HCPCS: 99283

== ENCOUNTER 2021-12-05 11:32 | Inpatient (IN) | payer MEDICARE, MEDICAID ==
[~2021-12-05] VITALS: Ht 177.8 cm; Wt 56.4 kg
[2021-12-05] VITALS (11 sets, daily range): BP systolic 99–144; BP diastolic 58–73
[~2021-12-05 11:32] MED LIST changes: +DIPH25CA85 PO
[2021-12-05] MEDS ORDERED: PANTOPRAZOLE SODIUM 80 MG in SODIUM CHLORIDE 0.9% 100 ML IV SCH (12:00)
[2021-12-05] MEDS ORDERED: PANTOPRAZOLE SODIUM 40 MG/VIAL IVP ONE (12:00)
[2021-12-05] MEDS ORDERED: MORPHINE SULFATE 4 MG/ML SYRINGE IVP ONE (12:00)
[2021-12-05] MEDS ORDERED: ONDANSETRON HCL 4 MG/2 ML VIAL IVP ONE (12:00)
[2021-12-05 12:30] LABS: BASOPHILS % (AUTO) 0.7 % (0.0-2.0); EOSINOPHILS % (AUTO) 1.9 % (1.0-6.0); LYMPHOCYTES % (AUTO) 27.5 % (22.0-44.0); MEAN CORPUSCULAR HGB CONC 30.6 G/dL (31.0-37.0); MEAN CORPUSCULAR VOLUME 75 fL (80-100); MONOCYTES # (AUTO) 0.3 K/uL (0.1-1.0); MONOCYTES % (AUTO) 7.1 % (2.0-9.0); NEUTROPHILS # (AUTO) 2.3 K/uL (1.8-7.7); NEUTROPHILS % (AUTO) 62.8 % (40.0-70.0); PLATELET COUNT (AUTO) 208 K/uL (150-450); RED BLOOD CELL COUNT(AUTO) 2.05 MIL/uL (4.50-5.90)
[2021-12-05 12:36] LABS: INR 1.3 (0.9-1.1); PROTHROMBIN TIME 13.1 SEC (9.4-11.6)
[2021-12-05 12:43] LABS: HEMOGLOBIN 4.7 g/dL (13.5-17.5)
[2021-12-05 12:44] LABS: HEMATOCRIT 15.4 % (41-53)
[2021-12-05 12:45] LABS: ANION GAP 10 mmol/L (8-16); CARBON DIOXIDE 22 mmol/L (22-29); CHLORIDE 110 mmol/L (98-107); GLOMERULAR FILTR. RATE CALC > 60 mL/min (>60); GLUCOSE,RANDOM 147 mg/dL (70-110); POTASSIUM 4.5 mmol/L (3.5-5.1); SODIUM SERUM 142 mmol/L (136-145); UREA NITROGEN, BLOOD 43 mg/dL (7-18)
[2021-12-05] MEDS ORDERED: DiphenhydrAMINE HCL 50 MG/ML VIAL IVP ONE (12:45)
[2021-12-05 12:54] LABS: ALANINE AMINOTRANSFERASE 47 U/L (12-78); ALBUMIN 1.9 g/dL (3.4-5.0); ALKALINE PHOSPHATASE 159 U/L (46-116); ASPARTATE AMINOTRANSFERASE 56 U/L (15-37); BILIRUBIN,TOTAL 0.3 mg/dL (0.1-1.0); LIPASE 130 U/L (73-393); TOTAL PROTEIN, SERUM 5.9 g/dL (6.4-8.2)
[2021-12-05] MEDS ORDERED: CefTRIAXone 1 GM/DEXTROSE 50 ML IV ONE (13:15)
[2021-12-05] MEDS ORDERED: OCTREOTIDE ACETATE 100 MCG/ML VIAL IVP ONE (13:15)
[2021-12-05] MEDS ORDERED: SODIUM CHLORIDE 0.9% 1,000 ML IV ONE ×2 (13:15→14:15)
[2021-12-05] MEDS ORDERED: ONDANSETRON HCL 4 MG/2 ML VIAL IVP PRN (14:15)
[2021-12-05] MEDS ORDERED: 0.9% SODIUM CHLORIDE 10 ML SYRINGE IVP PRN (14:15)
[2021-12-05 15:36] LABS: AMPHET/METH SCREEN,URINE NEGATIVE (NEGATIVE); BARBITURATE SCREEN, URINE NEGATIVE (NEGATIVE); BENZODIAZEPINES SCREEN,URINE NEGATIVE (NEGATIVE); CANNABINOID SCREEN,URINE NEGATIVE (NEGATIVE); COCAINE SCREEN,URINE NEGATIVE (NEGATIVE); METHADONE SCREEN, URINE NEGATIVE (NEGATIVE); OPIATE SCREEN,URINE POSITIVE (NEGATIVE)
[2021-12-05 15:37] LABS: PHENCYCLIDINE SCREEN,URINE NEGATIVE (NEGATIVE)
[2021-12-05 15:38] LABS: APPEARANCE,URINE CLEAR (CLEAR); BILIRUBIN,URINE NEGATIVE (NEGATIVE); GLUCOSE, URINE (UA) NEGATIVE (NEGATIVE); KETONES,URINE NEGATIVE (NEGATIVE); LEUKOCYTE ESTERASE ,URINE LARGE (NEGATIVE); NITRATE,URINE NEGATIVE (NEGATIVE); OCCULT BLOOD,URINE NEGATIVE (NEGATIVE); PROTEIN,URINE TRACE (NEGATIVE)
[2021-12-05] MEDS ORDERED: SODIUM CHLORIDE 0.9% 500 ML IV ONE (15:43)
[2021-12-05 15:58] LABS: BACTERIA,URINE Many /HPF (None Seen); RBC,URINE 0-2 /HPF (0-2); WBC,URINE 26-50 /HPF (0-5)
[2021-12-05 15:59] LABS: SQUAMOUS EPITHELIAL CELL,UR Few /LPF (None Seen)
[2021-12-05] MEDS: NICOTINE 21 MG/24 HOUR PATCH TD SCH (18:10)
[2021-12-05] MEDS: LORazepam 2 MG/ML VIAL IM PRN (20:22)
[2021-12-05 21:23] LABS: HEMATOCRIT 18.5 % (41-53); HEMOGLOBIN 5.8 g/dL (13.5-17.5)
[2021-12-05] MEDS ORDERED: DiphenhydrAMINE HCL 25 MG CAPSULE PO PRN (21:45)
[2021-12-05] MEDS ORDERED: SODIUM CHLORIDE 0.9% 250 ML IV ONE (22:35)
[2021-12-05] MEDS: OCTREOTIDE ACETATE 500 MCG in DEXTROSE 5%-WATER 97.5 ML IV SCH (22:55)
[2021-12-05] MEDS: PANTOPRAZOLE SODIUM 80 MG in SODIUM CHLORIDE 0.9% 100 ML IV SCH (22:56)
[2021-12-06] VITALS (7 sets, daily range): BP systolic 90–114; BP diastolic 45–72
[2021-12-06 06:29] LABS: BASOPHILS % (AUTO) 1.2 % (0.0-2.0); EOSINOPHILS % (AUTO) 2.4 % (1.0-6.0); HEMATOCRIT 23.6 % (41-53); HEMOGLOBIN 7.8 g/dL (13.5-17.5); LYMPHOCYTES # (AUTO) 1.4 K/uL (1.0-4.8); MEAN CORPUSCULAR HGB CONC 33.1 G/dL (31.0-37.0); MEAN CORPUSCULAR VOLUME 78 fL (80-100); MONOCYTES # (AUTO) 0.7 K/uL (0.1-1.0); MONOCYTES % (AUTO) 11.6 % (2.0-9.0); NEUTROPHILS # (AUTO) 3.4 K/uL (1.8-7.7); NEUTROPHILS % (AUTO) 59.8 % (40.0-70.0); PLATELET COUNT (AUTO) 162 K/uL (150-450); RED BLOOD CELL COUNT(AUTO) 3.02 MIL/uL (4.50-5.90); RED CELL DISTRIBUTION WIDTH 18.3 % (11.5-14.5)
[2021-12-06 08:12] LABS: ALANINE AMINOTRANSFERASE 135 U/L (12-78); ALBUMIN 2.1 g/dL (3.4-5.0); ALKALINE PHOSPHATASE 141 U/L (46-116); ANION GAP 8 mmol/L (8-16); ASPARTATE AMINOTRANSFERASE 442 U/L (15-37); BILIRUBIN,TOTAL 0.8 mg/dL (0.1-1.0); CALCIUM, TOTAL 7.7 mg/dL (8.8-10.5); CARBON DIOXIDE 24 mmol/L (22-29); CHLORIDE 109 mmol/L (98-107); CREATININE 0.95 mg/dL (0.60-1.30); GLOMERULAR FILTR. RATE CALC > 60 mL/min (>60); GLUCOSE,RANDOM 119 mg/dL (70-110); POTASSIUM 4.7 mmol/L (3.5-5.1); SODIUM SERUM 141 mmol/L (136-145); TOTAL PROTEIN, SERUM 6.2 g/dL (6.4-8.2); UREA NITROGEN, BLOOD 47 mg/dL (7-18)
[2021-12-06] MEDS: PANTOPRAZOLE SODIUM 80 MG in SODIUM CHLORIDE 0.9% 100 ML IV SCH ×2 (08:30→18:30)
[2021-12-06] MEDS: OCTREOTIDE ACETATE 500 MCG in DEXTROSE 5%-WATER 97.5 ML IV SCH ×2 (10:00→18:30)
[2021-12-06] MEDS: ARIPiprazole 10 MG TABLET PO SCH (10:00)
[2021-12-06] MEDS: DIVALPROEX SODIUM 500 MG DR TABLET PO SCH ×2 (10:00→21:28)
[2021-12-06] MEDS: TAMSULOSIN HCL 0.4 MG CAPSULE PO SCH (10:01)
[2021-12-06] MEDS: NICOTINE 21 MG/24 HOUR PATCH TD SCH (10:01)
[2021-12-06 11:46] LABS: GLUCOMETER DEV NAME(LOC) AHU.; GLUCOSE,POINT OF CARE 146 MG/DL (70-110)
[2021-12-06] MEDS: CefTRIAXone 1 GM/DEXTROSE 50 ML IV SCH (14:00)
[2021-12-06 16:30] LABS: COVID AG,FIA SOURCE NASAL SWAB
[2021-12-06] MEDS ORDERED: PANTOPRAZOLE SODIUM 40 MG DR TABLET PO SCH (21:00)
[2021-12-06] MEDS: LORazepam 1 MG TABLET PO PRN (21:30)
[2021-12-07] VITALS (8 sets, daily range): BP systolic 95–120; BP diastolic 48–110
[2021-12-07] MEDS: PANTOPRAZOLE SODIUM 80 MG in SODIUM CHLORIDE 0.9% 100 ML IV SCH ×2 (07:37→17:19)
[2021-12-07] MEDS: OCTREOTIDE ACETATE 500 MCG in DEXTROSE 5%-WATER 97.5 ML IV SCH ×2 (07:37→17:19)
[2021-12-07] MEDS: NICOTINE 21 MG/24 HOUR PATCH TD SCH (09:00)
[2021-12-07] MEDS: ARIPiprazole 10 MG TABLET PO SCH (09:00)
[2021-12-07] MEDS: DIVALPROEX SODIUM 500 MG DR TABLET PO SCH ×2 (09:00→20:08)
[2021-12-07] MEDS: TAMSULOSIN HCL 0.4 MG CAPSULE PO SCH (09:00)
[2021-12-07] MEDS: ETHYL ALCOHOL 62% ANTISEPTIC NASAL INHALANT 0.6 ML AMPUL NASAL SCH ×2 (09:00→20:18)
[2021-12-07 09:51] LABS: GLUCOMETER DEV NAME(LOC) AHU.; GLUCOSE,POINT OF CARE 126 MG/DL (70-110)
[2021-12-07] MEDS ORDERED: KETAMINE HCL 50 MG/ML 10 ML VIAL IVP ONE (12:00)
[2021-12-07 13:31] LABS: MEAN CORPUSCULAR HEMOGLOBIN 25.6 pg (26.0-34.0); MEAN CORPUSCULAR HGB CONC 32.2 G/dL (31.0-37.0); MEAN CORPUSCULAR VOLUME 80 fL (80-100); PLATELET COUNT (AUTO) 159 K/uL (150-450); RED BLOOD CELL COUNT(AUTO) 1.94 MIL/uL (4.50-5.90); RED CELL DISTRIBUTION WIDTH 19.9 % (11.5-14.5)
[2021-12-07 13:40] LABS: ANION GAP 9 mmol/L (8-16); CALCIUM, TOTAL 7.7 mg/dL (8.8-10.5); CARBON DIOXIDE 24 mmol/L (22-29); CHLORIDE 109 mmol/L (98-107); CREATININE 0.96 mg/dL (0.60-1.30); GLOMERULAR FILTR. RATE CALC > 60 mL/min (>60); GLUCOSE,RANDOM 140 mg/dL (70-110); POTASSIUM 4.5 mmol/L (3.5-5.1); SODIUM SERUM 142 mmol/L (136-145); UREA NITROGEN, BLOOD 48 mg/dL (7-18)
[2021-12-07 13:44] LABS: HEMATOCRIT 15.4 % (41-53)
[2021-12-07] MEDS ORDERED: MIDAZOLAM HCL 5 MG/ML VIAL ONE (13:45)
[2021-12-07] MEDS ORDERED: FentaNYL CITRATE PF 100 MCG/2 ML VIAL ONE (13:45)
[2021-12-07] MEDS: CefTRIAXone 1 GM/DEXTROSE 50 ML IV SCH (13:48)
[2021-12-07] MEDS ORDERED: SODIUM CHLORIDE 0.9% 250 ML IV ONE (13:53)
[2021-12-07 14:23] LABS: BAND NEUTROPHILS % (MANUAL) 1 % (0-5); LYMPHOCYTES % (MANUAL) 31 % (22-44); MONOCYTES % (MANUAL) 3 % (2-9); SEGMENTED NEUTROPHILS % 65 % (40-70)
[2021-12-07] MEDS ORDERED: SODIUM CHLORIDE 0.9% 1,000 ML ONE (14:37)
[2021-12-07] MEDS: LACTULOSE 20 GM/30 ML SOLUTION UDCUP PO SCH ×2 (16:00→20:07)
[2021-12-07] MEDS: LORazepam 2 MG/ML VIAL IM PRN (17:20)
[2021-12-07 17:36] LABS: BAND NEUTROPHILS % (MANUAL) 0 % (0-5)
[2021-12-07 17:38] LABS: HEMATOCRIT 24.3 % (41-53); MEAN CORPUSCULAR HEMOGLOBIN 26.7 pg (26.0-34.0); MEAN CORPUSCULAR HGB CONC 32.9 G/dL (31.0-37.0); MEAN CORPUSCULAR VOLUME 81 fL (80-100); PLATELET COUNT (AUTO) 128 K/uL (150-450); RED BLOOD CELL COUNT(AUTO) 2.99 MIL/uL (4.50-5.90); RED CELL DISTRIBUTION WIDTH 16.9 % (11.5-14.5)
[2021-12-07 17:50] LABS: LYMPHOCYTES % (MANUAL) 35 % (22-44); MONOCYTES % (MANUAL) 7 % (2-9); SEGMENTED NEUTROPHILS % 58 % (40-70)
[2021-12-07] MEDS: RIFAXIMIN 550 MG TABLET PO SCH (20:08)
[2021-12-07 21:31] LABS: BASOPHILS % (AUTO) 0.2 % (0.0-2.0); EOSINOPHILS % (AUTO) 0.1 % (1.0-6.0); HEMATOCRIT 25.5 % (41-53); HEMOGLOBIN 8.5 g/dL (13.5-17.5); LYMPHOCYTES # (AUTO) 1.5 K/uL (1.0-4.8); LYMPHOCYTES % (AUTO) 18.8 % (22.0-44.0); MEAN CORPUSCULAR HEMOGLOBIN 26.9 pg (26.0-34.0); MEAN CORPUSCULAR HGB CONC 33.2 G/dL (31.0-37.0); MEAN CORPUSCULAR VOLUME 81 fL (80-100); MONOCYTES # (AUTO) 1.2 K/uL (0.1-1.0); MONOCYTES % (AUTO) 15.3 % (2.0-9.0); NEUTROPHILS # (AUTO) 5.1 K/uL (1.8-7.7); NEUTROPHILS % (AUTO) 65.6 % (40.0-70.0); PLATELET COUNT (AUTO) 133 K/uL (150-450); RED BLOOD CELL COUNT(AUTO) 3.15 MIL/uL (4.50-5.90); RED CELL DISTRIBUTION WIDTH 17.4 % (11.5-14.5)
[2021-12-08] VITALS: BP 124/77
[2021-12-08] MEDS: OCTREOTIDE ACETATE 500 MCG in DEXTROSE 5%-WATER 97.5 ML IV SCH ×3 (00:52→21:00)
[2021-12-08] MEDS: PANTOPRAZOLE SODIUM 80 MG in SODIUM CHLORIDE 0.9% 100 ML IV SCH ×3 (00:52→21:01)
[2021-12-08] MEDS: LORazepam 2 MG/ML VIAL IM PRN ×2 (00:53→14:59)
[2021-12-08 04:00] VITALS: BP 110/62
[2021-12-08 06:18] LABS: BASOPHILS % (AUTO) 0.3 % (0.0-2.0); EOSINOPHILS % (AUTO) 0.1 % (1.0-6.0); HEMATOCRIT 23.8 % (41-53); HEMOGLOBIN 7.8 g/dL (13.5-17.5); LYMPHOCYTES # (AUTO) 1.4 K/uL (1.0-4.8); LYMPHOCYTES % (AUTO) 20.4 % (22.0-44.0); MEAN CORPUSCULAR HEMOGLOBIN 26.7 pg (26.0-34.0); MEAN CORPUSCULAR HGB CONC 32.9 G/dL (31.0-37.0); MEAN CORPUSCULAR VOLUME 81 fL (80-100); MONOCYTES # (AUTO) 1.2 K/uL (0.1-1.0); MONOCYTES % (AUTO) 18.5 % (2.0-9.0); NEUTROPHILS % (AUTO) 60.7 % (40.0-70.0); PLATELET COUNT (AUTO) 114 K/uL (150-450); RED BLOOD CELL COUNT(AUTO) 2.93 MIL/uL (4.50-5.90); RED CELL DISTRIBUTION WIDTH 17.7 % (11.5-14.5)
[2021-12-08 06:39] LABS: ALANINE AMINOTRANSFERASE 280 U/L (12-78); ALBUMIN 1.9 g/dL (3.4-5.0); ALKALINE PHOSPHATASE 133 U/L (46-116); ANION GAP 11 mmol/L (8-16); ASPARTATE AMINOTRANSFERASE 632 U/L (15-37); BILIRUBIN,TOTAL 0.7 mg/dL (0.1-1.0); CALCIUM, TOTAL 7.9 mg/dL (8.8-10.5); CARBON DIOXIDE 23 mmol/L (22-29); CHLORIDE 112 mmol/L (98-107); CREATININE 0.88 mg/dL (0.60-1.30); GLOMERULAR FILTR. RATE CALC > 60 mL/min (>60); GLUCOSE,RANDOM 129 mg/dL (70-110); PHOSPHORUS 3.6 mg/dL (2.5-4.9); POTASSIUM 4.1 mmol/L (3.5-5.1); SODIUM SERUM 146 mmol/L (136-145); UREA NITROGEN, BLOOD 42 mg/dL (7-18)
[2021-12-08 08:00] VITALS: BP 111/61
[2021-12-08] MEDS: DIVALPROEX SODIUM 500 MG DR TABLET PO SCH ×2 (09:00→21:00)
[2021-12-08] MEDS: RIFAXIMIN 550 MG TABLET PO SCH ×2 (09:00→21:00)
[2021-12-08] MEDS: TAMSULOSIN HCL 0.4 MG CAPSULE PO SCH (09:00)
[2021-12-08] MEDS: ETHYL ALCOHOL 62% ANTISEPTIC NASAL INHALANT 0.6 ML AMPUL NASAL SCH ×2 (09:00→21:01)
[2021-12-08] MEDS: ARIPiprazole 10 MG TABLET PO SCH (09:00)
[2021-12-08] MEDS: LACTULOSE 20 GM/30 ML SOLUTION UDCUP PO SCH ×3 (09:00→21:00)
[2021-12-08] MEDS: NICOTINE 21 MG/24 HOUR PATCH TD SCH (09:00)
[2021-12-08 12:00] VITALS: BP 121/66
[2021-12-08 13:40] LABS: HEMATOCRIT 25.1 % (41-53); HEMOGLOBIN 8.3 g/dL (13.5-17.5)
[2021-12-08] MEDS: CefTRIAXone 1 GM/DEXTROSE 50 ML IV SCH (14:58)
[2021-12-08 16:00] VITALS: BP 114/61
[2021-12-08 16:39] LABS: HEMATOCRIT 23.4 % (41-53); HEMOGLOBIN 7.7 g/dL (13.5-17.5)
[2021-12-08 20:12] LABS: HEMOGLOBIN 7.6 g/dL (13.5-17.5)
[2021-12-09] VITALS (8 sets, daily range): BP systolic 103–137; BP diastolic 52–85
[2021-12-09 00:27] LABS: HEMOGLOBIN 7.6 g/dL (13.5-17.5)
[2021-12-09 05:20] LABS: ALANINE AMINOTRANSFERASE 205 U/L (12-78); ALBUMIN 1.9 g/dL (3.4-5.0); ALKALINE PHOSPHATASE 132 U/L (46-116); ANION GAP 8 mmol/L (8-16); ASPARTATE AMINOTRANSFERASE 334 U/L (15-37); CALCIUM, TOTAL 8.2 mg/dL (8.8-10.5); CARBON DIOXIDE 24 mmol/L (22-29); CHLORIDE 111 mmol/L (98-107); CREATININE 0.66 mg/dL (0.60-1.30); GLOMERULAR FILTR. RATE CALC > 60 mL/min (>60); GLUCOSE,RANDOM 137 mg/dL (70-110); SODIUM SERUM 143 mmol/L (136-145); TOTAL PROTEIN, SERUM 6.8 g/dL (6.4-8.2); UREA NITROGEN, BLOOD 32 mg/dL (7-18)
[2021-12-09 06:37] LABS: BASOPHILS % (AUTO) 0.4 % (0.0-2.0); EOSINOPHILS % (AUTO) 0 % (1.0-6.0); HEMATOCRIT 24.3 % (41-53); LYMPHOCYTES # (AUTO) 0.6 K/uL (1.0-4.8); LYMPHOCYTES % (AUTO) 11.8 % (22.0-44.0); MEAN CORPUSCULAR HGB CONC 32.8 G/dL (31.0-37.0); MEAN CORPUSCULAR VOLUME 82 fL (80-100); MONOCYTES # (AUTO) 0.6 K/uL (0.1-1.0); NEUTROPHILS % (AUTO) 75.8 % (40.0-70.0); PLATELET COUNT (AUTO) 115 K/uL (150-450); RED BLOOD CELL COUNT(AUTO) 2.95 MIL/uL (4.50-5.90); RED CELL DISTRIBUTION WIDTH 18.5 % (11.5-14.5)
[2021-12-09] MEDS: PANTOPRAZOLE SODIUM 80 MG in SODIUM CHLORIDE 0.9% 100 ML IV SCH ×2 (07:53→16:15)
[2021-12-09] MEDS: OCTREOTIDE ACETATE 500 MCG in DEXTROSE 5%-WATER 97.5 ML IV SCH ×2 (07:53→16:15)
[2021-12-09] MEDS: RIFAXIMIN 550 MG TABLET PO SCH ×2 (10:40→22:31)
[2021-12-09] MEDS: LACTULOSE 20 GM/30 ML SOLUTION UDCUP PO SCH ×3 (10:40→22:30)
[2021-12-09] MEDS: ARIPiprazole 10 MG TABLET PO SCH (10:40)
[2021-12-09] MEDS: ETHYL ALCOHOL 62% ANTISEPTIC NASAL INHALANT 0.6 ML AMPUL NASAL SCH ×2 (10:40→22:29)
[2021-12-09] MEDS: TAMSULOSIN HCL 0.4 MG CAPSULE PO SCH (10:40)
[2021-12-09] MEDS: NICOTINE 21 MG/24 HOUR PATCH TD SCH (10:41)
[2021-12-09] MEDS: DIVALPROEX SODIUM 125 MG DR CAPSULE PO SCH ×2 (11:21→22:30)
[2021-12-09 13:52] LABS: HEMATOCRIT 22.5 % (41-53); HEMOGLOBIN 7.3 g/dL (13.5-17.5)
[2021-12-09] MEDS: CefTRIAXone 1 GM/DEXTROSE 50 ML IV SCH (13:52)
[2021-12-09] MEDS: LORazepam 1 MG TABLET PO PRN ×2 (14:15→15:00)
[2021-12-09 16:08] LABS: HEMATOCRIT 25.3 % (41-53); HEMOGLOBIN 8.2 g/dL (13.5-17.5)
[2021-12-09 17:10] LABS: FREE T4 (FREE THYROXINE) 1.19 ng/dL (0.76-1.46); THYROID STIMULATING HORMONE 0.09 uIU/mL (0.36-3.74)
[2021-12-09] MEDS ORDERED: *CLINICAL-MEROPENEM DOSING CLINICAL ONE (17:30)
[2021-12-09 21:04] LABS: HEMATOCRIT 20.9 % (41-53); HEMOGLOBIN 6.9 g/dL (13.5-17.5)
[2021-12-09] MEDS: LORazepam 2 MG/ML VIAL IM PRN (21:26)
[2021-12-09] MEDS ORDERED: SODIUM CHLORIDE 0.9% 250 ML IV ONE (22:36)
[2021-12-10 04:16] VITALS: BP 129/88
[2021-12-10] MEDS: LORazepam 1 MG TABLET PO PRN (04:25)
[2021-12-10] MEDS: MEROPENEM 1 GM in SODIUM CHLORIDE 0.9% 100 ML IV SCH ×3 (05:39→14:29)
[2021-12-10] MEDS: PANTOPRAZOLE SODIUM 80 MG in SODIUM CHLORIDE 0.9% 100 ML IV SCH ×2 (05:42→11:20)
[2021-12-10] MEDS: OCTREOTIDE ACETATE 500 MCG in DEXTROSE 5%-WATER 97.5 ML IV SCH ×2 (05:43→13:00)
[2021-12-10 06:17] LABS: BASOPHILS % (AUTO) 0.2 % (0.0-2.0); EOSINOPHILS % (AUTO) 0.3 % (1.0-6.0); HEMATOCRIT 22.7 % (41-53); HEMOGLOBIN 7.6 g/dL (13.5-17.5); LYMPHOCYTES # (AUTO) 0.5 K/uL (1.0-4.8); LYMPHOCYTES % (AUTO) 13.2 % (22.0-44.0); MEAN CORPUSCULAR HEMOGLOBIN 27.1 pg (26.0-34.0); MEAN CORPUSCULAR HGB CONC 33.4 G/dL (31.0-37.0); MEAN CORPUSCULAR VOLUME 81 fL (80-100); MONOCYTES # (AUTO) 0.3 K/uL (0.1-1.0); MONOCYTES % (AUTO) 9.7 % (2.0-9.0); NEUTROPHILS # (AUTO) 2.7 K/uL (1.8-7.7); NEUTROPHILS % (AUTO) 76.6 % (40.0-70.0); PLATELET COUNT (AUTO) 129 K/uL (150-450); RED CELL DISTRIBUTION WIDTH 18.4 % (11.5-14.5)
[2021-12-10 06:54] LABS: ALANINE AMINOTRANSFERASE 150 U/L (12-78); ALKALINE PHOSPHATASE 129 U/L (46-116); ANION GAP 13 mmol/L (8-16); ASPARTATE AMINOTRANSFERASE 169 U/L (15-37); BILIRUBIN,TOTAL 0.9 mg/dL (0.1-1.0); CALCIUM, TOTAL 8.3 mg/dL (8.8-10.5); CARBON DIOXIDE 23 mmol/L (22-29); CHLORIDE 111 mmol/L (98-107); CREATININE 0.85 mg/dL (0.60-1.30); GLOMERULAR FILTR. RATE CALC > 60 mL/min (>60); GLUCOSE,RANDOM 95 mg/dL (70-110); POTASSIUM 3.3 mmol/L (3.5-5.1); SODIUM SERUM 147 mmol/L (136-145); TOTAL PROTEIN, SERUM 6.9 g/dL (6.4-8.2); UREA NITROGEN, BLOOD 31 mg/dL (7-18)
[2021-12-10 08:12] VITALS: BP 138/87
[2021-12-10] MEDS: ARIPiprazole 10 MG TABLET PO SCH (10:48)
[2021-12-10] MEDS: RIFAXIMIN 550 MG TABLET PO SCH (10:48)
[2021-12-10] MEDS: NICOTINE 21 MG/24 HOUR PATCH TD SCH (10:48)
[2021-12-10] MEDS: DIVALPROEX SODIUM 125 MG DR CAPSULE PO SCH (10:49)
[2021-12-10] MEDS: LACTULOSE 20 GM/30 ML SOLUTION UDCUP PO SCH ×2 (10:49→16:50)
[2021-12-10 11:53] VITALS: BP 144/89
[2021-12-10] MEDS: TAMSULOSIN HCL 0.4 MG CAPSULE PO SCH (14:28)
[2021-12-10 15:27] VITALS: BP 145/85
[2021-12-10] MEDS: LORazepam 2 MG/ML VIAL IM PRN (16:50)
== END 2021-12-10 17:40 | disposition short-term general hospital (02) | DRG 299 ==
LOC: EMS 11:38 → ICUN 14:12 → 5S 12-09 17:55
PROVIDERS: ADMIT Hospitalist; ATTEND Hospitalist
PROC: 30233N1 Transfusion of Nonautologous Red Blood Cells into Peripheral Vein, Percutaneous Approach (ICD-10-PCS; 2021-12-05)
PROC: 05HY33Z Insertion of Infusion Device into Upper Vein, Percutaneous Approach (ICD-10-PCS; 2021-12-07)
PROC: 0DJ08ZZ Inspection of Upper Intestinal Tract, Via Natural or Artificial Opening Endoscopic (ICD-10-PCS; principal; 2021-12-07 16:30)
DX: I86.4 Gastric varices (principal); I85.01 Esophageal varices with bleeding; E43 Unspecified severe protein-calorie malnutrition; N39.0 Urinary tract infection, site not specified; K76.6 Portal hypertension; R18.8 Other ascites; Z68.1 Body mass index [BMI] 19.9 or less, adult; K74.60 Unspecified cirrhosis of liver; E11.9 Type 2 diabetes mellitus without complications; Z20.822 Contact with and (suspected) exposure to COVID-19; F20.9 Schizophrenia, unspecified; D50.0 Iron deficiency anemia secondary to blood loss (chronic); N40.0 Benign prostatic hyperplasia without lower urinary tract symptoms; K31.89 Other diseases of stomach and duodenum; Z87.891 Personal history of nicotine dependence; Z91.19 Patient's noncompliance with other medical treatment and regimen; Z88.8 Allergy status to other drugs, medicaments and biological substances
CPT/HCPCS: 36245; 36569; 71045; 76700; 76937; 80048; 80053; 81001; 82140; 82271; 82962; 83690; 83735; 84100; 84439; 84443; 85007; 85014; 85018; 85025; 85027; 85610; 85730; 86850; 86900; 86901; 86923; 87081; 87086; 92610; 93005; 99291; C9113; G0378; J0696; J2060; J2185; J2250; J2270; J2354; J2405; J3010; J3490; J7030; J7040; J7050; J7060; P9016; 36415-L1; 36415-TC